=== PATIENT | female | born 1970 | race Caucasian/White ===

== ENCOUNTER 2021-02-11 01:58 | Inpatient (IN) ==
[2021-02-11] MEDS ORDERED: SODIUM CHLORIDE 0.9% 1000ML 1,000 ML IV ONE (02:16)
--- NOTE | 2021-02-11 02:21 | Emergency Department Note ---
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 Quite ill appearing, tachypneic and dehyrated on arrival. Septic work-up initiated though obtained VGB given concerns for DKA given her appearnce. Given 1 L NSS bolus with some improvement in patient and then NSS infusion (she is quite small and already 30ml/kg with just 1 L). Labs with elevated wbc as well as hyperglycemia, acidosis, and bicarb of 4. This is consistent with severe DKA. She does not have any clear findings of infectious etiology at this time and abdomen is soft, non-tender. She was started on severe stress dose insulin infusion and Hospitalist and ICU made aware. Will hold on abx given no clear findings/source infection at this time and symptoms/findings consistent with DKA. I did give her some benadryl with history of allergy to what she was mowing with minimal change in symptoms. Patient has elevated dimer. In setting of DKA and her rheumatoid arthritis I am not overly convinced this is clotting related and I do not feel that emergent CTA in patient with good O2 sats indicated given other causes of symptoms. Triage/Nursing Notes reviewed by Me Differentials:Infection, dehydration, metabolic abnormality, h ypo/hyperglycemia, electrolyte disturbance, anemia, hypoxia, cardiac sources, intracerebral event, toxicologic, neurologic, as well as other pathologies. Vital Signs: reviewed and remarkable for tachy, hypertension, tachypnea Interventions: saline lock, nss bolus/gtt, insulin gtt, benadryl 25mg IV Labs:Reviewed and remarkable for many abnormalities consistent with DKA Imaging:X ray results are stated below per my interpretation: Chest: 1 view: No infiltrate, no effusion, normal cardiac border. EKG:Per My Interpretation: Indication Weakness: Sinus tach 368 bpm, qtc 498. No Ectopy. No Ischemia. Compared to EKG 02/07/13, no significant changes. Cardiac/Tele Monitoring: Cardiac Monitoring: An Order was placed for continuous cardiac monitoring. The monitor shows a rate of 115 with a sinus tach rhythm. Consults:Dr Dl Tena Hospitalist Plan: Disposition:Hospitalization. Condition: Fair History of Present Illness:50 yr old female arrives for evaluation of weakness. Patient arrives with acute worsening of weakness over the last 3 days. Associated with feeling short of breath, intermittent chest pain, and lack of appetite. She has been too weak to eat anything. No previous symptoms like this previously. Inciting event was mowing her lawn. No bee nor insect stings but did mow sumac which has previously caused allergic reaction. Benadryl taken at home without improvement. She is DMII though has not checked BSG in some time. She denies syncope, rashes, abdominal pain, headache, fevers, back pain, urinary/bowel changes, nor other symptoms. Patient with long history rheumatoid arthritis on chronic low dose steroids. ROS: See above HPI for pertinent positives & negatives. A total of 10 systems reviewed and were otherwise negative. Past Medical History:DMII, Rheumatoid arthritis, Celiac Disease, Asthma, GERD Past Surgical History:None Family History:Non contributory Social History:Lives with , no smoking Home Medications:See Below Allergies:See Below Vitals:Blood Pressure: 163/79, Pulse 110, RR 30, T 36.4C, O2 100% on RA Physical Exam: GENERAL: Patient is severely ill and dehydrated appearing and in severe distress. Cachectic appearing EYES: No scleral icterus, unremarkable pupils. ENT: Mucous membranes dry, no nasal congestion. NECK: No masses appreciated, nomeningismus, trachea is midline. RESPIRATORY: Quite tachypneic. Clear to auscultation and equal bilaterally. No wheeze, no rhonchi. CARDIOVASCULAR: Tachy.No murmurs, rubs, gallops appreciated. GASTROINTESTINAL: Abdomen soft, non-tender, no peritonitis.Bowel sounds positive.No masses appreciated. BACK: No midline tenderness, no CVA tenderness EXTREMITIES: Normal motion all extremities, no cyanosis, no edema. Arthritis in hands noted NEUROLOGIC: Alert and oriented though tired appearing, no acute motor or sensory deficits, no focal weakness, cranial nerves grossly intact. SKIN: No rash, no jaundice, no diaphoresis. PSYCH: Appropriate GCS: 15 ED Course: Times/Reassessments: Multiple repeat evaluations to explain findings and need for hospitalization Critical Care: I have personally spent 35 minutes of critical care time in the direct man agement of this patient. Acute DKA with severe acidosis requiring fluid resus, insulin gtt and ICU admission. This was a life/limb threatening event. This 35 minutes is in excess of all separately billable procedures. Jose Fuchs MD Past Med/Surg History Social History Smoking Status: Never smoker Hx Alcohol Use: Yes Alcohol type: wine Hx Substance Use: No Preferred Language: Niuean Communication Ability: Effective Chorus Dancer Required: No Beliefs That Will Affect Care: None Current Living Situation: Spouse Other Information That Helps Us Care for You: No Feels Safe at Home: Yes Safety Concerns: Feels Safe At This Time Assistive Devices: Glasses Allergies Allergies Allergy/AdvReac Type Severity Reaction Status Date / Time latex Allergy Intermediate rash, Verified 02/11/21 02:32 breathing problem wheat Allergy Mild HIVES Unverified 02/11/21 02:32 propylthiouracil Allergy Unknown Unknown Verified 02/11/21 02:32 Sulfa (Sulfonamide Allergy UNKN Unverified 02/11/21 02:32 Antibiotics) methimazole AdvReac Unknown ITCHY Verified 02/11/21 02:32 Home Meds Home Medications Medication Instructions Recorded Confirmed albuterol sulfate 90 mcg/actuation 2 puff INHALATION Q6 PRN 02/11/21 02/11/21 aerosol inhaler cetirizine 10 mg tablet (Zyrtec) 10 mg PO DAILY 02/11/21 02/11/21 cholecalciferol (vitamin D3) 50 50 mcg PO DAILY 02/11/21 02/11/21 mcg (2,000 unit) tablet (Vitamin D3) empagliflozin 25 mg tablet 25 mg PO DAILY 02/11/21 02/11/21 (Jardiance) hydroxychloroquine 200 mg tablet 200 mg PO DAILY 02/11/21 02/11/21 metformin 850 mg tablet 850 mg PO TID 02/11/21 02/11/21 montelukast 10 mg tablet 10 mg PO DAILY 02/11/21 02/11/21 multivitamin 1 tab PO DAILY 02/11/21 02/11/21 omeprazole 20 mg capsule,delayed 20 mg PO BID 02/11/21 02/11/21 release polyethylene glycol 3350 17 gram 17 g PO DAILY 02/11/21 02/11/21 oral powder packet (Miralax) prednisone 1 mg tablet 4 mg PO DAILY 02/11/21 02/11/21 Results & Data (ED) Vital Signs Vital Signs - 24 hr 02/11/21 01:58 02/11/21 02:44 02/11/21 03:23 Temperature 36.4 C L Temperature Source Temporal Artery Scan Pulse Rate 110 H 112 H Pulse Rate from SpO2 Sensor 112 H Respiratory Rate 30 H 33 H Respiratory Effort / Characteristics Non-Labored Spontaneous Short of Breath SOB on Exertion Non-Labored Spontaneous Short of Breath Respiratory Depth Normal Normal Respiratory Pattern Tachypnea Tachypnea Blood Pressure 163/79 H Blood Pressure Mean 107 Blood Pressure Position Sitting Pulse Oximetry 100 100 Oxygen Delivery Method Room Air Room Air Sepsis Recent Fever Within 48 Hours No Sepsis New/Unexplained Change in Mental Status No Sepsis Action Taken by Nursing No Action Required 02/11/21 04:00 02/11/21 04:30 Temperature Temperature Source Pulse Rate 107 H 111 H Pulse Rate from SpO2 Sensor 107 H 111 H Respiratory Rate 25 H 25 H Respiratory Effort / Characteristics Respiratory Depth Respiratory Pattern Blood Pressure 157/95 H 159/93 H Blood Pressure Mean 115 115 Blood Pressure Position Pulse Oximetry 100 100 Oxygen Delivery Method Sepsis Recent Fever Within 48 Hours Sepsis New/Unexplained Change in Mental Status Sepsis Action Taken by Nursing Laboratory Data Result diagrams: 02/11/21 02:23 02/11/21 07:14 Lab Results 02/11/21 02/11/21 02/11/21 Range/Units 02:16 02:23 02:23 WBC (4.8-10.8) K/uL RBC (4.2-5.4) M/uL Hgb (12.0-16.0) g/dL Hct (37-47) % MCV (80-100) fL MCH (25-34) pg MCHC (32-36) g/dL RDW Std Deviation (36.4-46.3) fL RDW Coeff of Hank (11.5-14.5) % Plt Count (130-400) K/uL MPV (7.4-10.4) fL Immature Gran % (Auto) % Neut % (Auto) % Lymph % (Auto) % [place] % (Auto) % Eos % (Auto) % Baso % (Auto) % Neut # (Auto) (1.4-6.5) K/uL Lymph # (Auto) (1.2-3.4) K/uL [place] # (Auto) (0.11-0.59) K/uL Eos # (Auto) (0-0.5) K/uL Baso # (Auto) (0-0.2) K/uL Immature Gran # (Auto) (0.00-0.02) K/uL RBC Morphology PT (9.0-12.0) Seconds INR (0.9-1.1) D-Dimer (0-500) ug/L FEU VBG pH (7.36-7.41) VBG pCO2 (38-50) mmHg VBG pO2 mmHg VBG HCO3 mmol/L VBG O2 Saturation % VBG Base Excess mEq/L Sodium 135 L (136-145) mmol/L Potassium 4.5 (3.5-5.1) mmol/L Chloride 103 (98-107) mmol/L Carbon Dioxide 4 L* (21-32) mmol/L Anion Gap 28.0 H (3-11) BUN 23 H (7-18) mg/dl Creatinine 1.04 (0.6-1.2) mg/dl Est Cr Clr Drug Dosing Not Reportable Est GFR ( Amer) 71.5 ml/min Est GFR (Non-Af Amer) 61.7 ml/min BUN/Creatinine Ratio 22.2 H (10-20) Glucose 333 H* (70-99) mg/dl POC Glucose 286 H (70-99) mg/dl Lactate 1.8 (0.4-2.0) mmol/L Calcium 9.0 (8.5-10.1) mg/dl Magnesium 2.5 H (1.8-2.4) mg/dl Total Bilirubin 0.5 (0.2-1) mg/dl Direct Bilirubin < 0.1 (0-0.2) mg/dl AST 21 (15-37) U/L ALT 34 (12-78) U/L Alkaline Phosphatase 115 (45-117) U/L Troponin I < 0.015 (0-0.045) ng/ml Total Protein 8.8 H (6.4-8.2) gm/dl Albumin 4.5 (3.4-5.0) gm/dl Lipase 208 (73-393) U/L Beta-Hydroxybutyric Acd (0.2-2.81) mg/dl Procalcitonin (0-0.5) ng/ml TSH 0.069 L (0.300-4.500) uIu/ml COVID-19 Eval Order SARS-CoV-2 (PCR) (Negative) 02/11/21 02/11/21 02/11/21 Range/Units 02:23 02:23 02:23 WBC 19.89 H (4.8-10.8) K/uL RBC 4.75 (4.2-5.4) M/uL Hgb 15.1 (12.0-16.0) g/dL Hct 48.1 H (37-47) % MCV 101.3 H (80-100) fL MCH 31.8 (25-34) pg MCHC 31.4 L (32-36) g/dL RDW Std Deviation 53.5 H (36.4-46.3) fL RDW Coeff of Hank 14.4 (11.5-14.5) % Plt Count 538 H (130-400) K/uL MPV 10.4 (7.4-10.4) fL Immature Gran % (Auto) 2.4 % Neut % (Auto) 78.2 % Lymph % (Auto) 9.8 % [place] % (Auto) 9.3 % Eos % (Auto) 0.1 % Baso % (Auto) 0.2 % Neut # (Auto) 15.58 H (1.4-6.5) K/uL Lymph # (Auto) 1.95 (1.2-3.4) K/uL [place] # (Auto) 1.84 H (0.11-0.59) K/uL Eos # (Auto) 0.01 (0-0.5) K/uL Baso # (Auto) 0.04 (0-0.2) K/uL Immature Gran # (Auto) 0.47 H (0.00-0.02) K/uL RBC Morphology Unremarkable PT 9.5 (9.0-12.0) Seconds INR 0.9 (0.9-1.1) D-Dimer 1570 H* (0-500) ug/L FEU VBG pH (7.36-7.41) VBG pCO2 (38-50) mmHg VBG pO2 mmHg VBG HCO3 mmol/L VBG O2 Saturation % VBG Base Excess mEq/L Sodium (136-145) mmol/L Potassium (3.5-5.1) mmol/L Chloride (98-107) mmol/L Carbon Dioxide (21-32) mmol/L Anion Gap (3-11) BUN (7-18) mg/dl Creatinine (0.6-1.2) mg/dl Est Cr Clr Drug Dosing Est GFR ( Amer) ml/min Est GFR (Non-Af Amer) ml/min BUN/Creatinine Ratio (10-20) Glucose (70-99) mg/dl POC Glucose (70-99) mg/dl Lactate (0.4-2.0) mmol/L Calcium (8.5-10.1) mg/dl Magnesium (1.8-2.4) mg/dl Total Bilirubin (0.2-1) mg/dl Direct Bilirubin (0-0.2) mg/dl AST (15-37) U/L ALT (12-78) U/L Alkaline Phosphatase (45-117) U/L Troponin I (0-0.045) ng/ml Total Protein (6.4-8.2) gm/dl Albumin (3.4-5.0) gm/dl Lipase (73-393) U/L Beta-Hydroxybutyric Acd (0.2-2.81) mg/dl Procalcitonin 0.16 (0-0.5) ng/ml TSH (0.300-4.500) uIu/ml COVID-19 Eval Order SARS-CoV-2 (PCR) (Negative) 02/11/21 02/11/21 02/11/21 Range/Units 02:46 03:00 03:00 WBC (4.8-10.8) K/uL RBC (4.2-5.4) M/uL Hgb (12.0-16.0) g/dL Hct (37-47) % MCV (80-100) fL MCH (25-34) pg MCHC (32-36) g/dL RDW Std Deviation (36.4-46.3) fL RDW Coeff of Hank (11.5-14.5) % Plt Count (130-400) K/uL MPV (7.4-10.4) fL Immature Gran % (Auto) % Neut % (Auto) % Lymph % (Auto) % [place] % (Auto) % Eos % (Auto) % Baso % (Auto) % Neut # (Auto) (1.4-6.5) K/uL Lymph # (Auto) (1.2-3.4) K/uL [place] # (Auto) (0.11-0.59) K/uL Eos # (Auto) (0-0.5) K/uL Baso # (Auto) (0-0.2) K/uL Immature Gran # (Auto) (0.00-0.02) K/uL RBC Morphology PT (9.0-12.0) Seconds INR (0.9-1.1) D-Dimer (0-500) ug/L FEU VBG pH 6.91 L (7.36-7.41) VBG pCO2 22 L (38-50) mmHg VBG pO2 53 mmHg VBG HCO3 4 mmol/L VBG O2 Saturation 78.4 % VBG Base Excess -27.6 mEq/L Sodium (136-145) mmol/L Potassium (3.5-5.1) mmol/L Chloride (98-107) mmol/L Carbon Dioxide (21-32) mmol/L Anion Gap (3-11) BUN (7-18) mg/dl Creatinine (0.6-1.2) mg/dl Est Cr Clr Drug Dosing Est GFR ( Amer) ml/min Est GFR (Non-Af Amer) ml/min BUN/Creatinine Ratio (10-20) Glucose (70-99) mg/dl POC Glucose (70-99) mg/dl Lactate (0.4-2.0) mmol/L Calcium (8.5-10.1) mg/dl Magnesium (1.8-2.4) mg/dl Total Bilirubin (0.2-1) mg/dl Direct Bilirubin (0-0.2) mg/dl AST (15-37) U/L ALT (12-78) U/L Alkaline Phosphatase (45-117) U/L Troponin I (0-0.045) ng/ml Total Protein (6.4-8.2) gm/dl Albumin (3.4-5.0) gm/dl Lipase (73-393) U/L Beta-Hydroxybutyric Acd (0.2-2.81) mg/dl Procalcitonin (0-0.5) ng/ml TSH (0.300-4.500) uIu/ml COVID-19 Eval Order Covid19 at [facility] SARS-CoV-2 (PCR) NEGATIVE (Negative) 02/11/21 Range/Units 03:38 WBC (4.8-10.8) K/uL RBC (4.2-5.4) M/uL Hgb (12.0-16.0) g/dL Hct (37-47) % MCV (80-100) fL MCH (25-34) pg MCHC (32-36) g/dL RDW Std Deviation (36.4-46.3) fL RDW Coeff of Hank (11.5-14.5) % Plt Count (130-400) K/uL MPV (7.4-10.4) fL Immature Gran % (Auto) % Neut % (Auto) % Lymph % (Auto) % [place] % (Auto) % Eos % (Auto) % Baso % (Auto) % Neut # (Auto) (1.4-6.5) K/uL Lymph # (Auto) (1.2-3.4) K/uL [place] # (Auto) (0.11-0.59) K/uL Eos # (Auto) (0-0.5) K/uL Baso # (Auto) (0-0.2) K/uL Immature Gran # (Auto) (0.00-0.02) K/uL RBC Morphology PT (9.0-12.0) Seconds INR (0.9-1.1) D-Dimer (0-500) ug/L FEU VBG pH (7.36-7.41) VBG pCO2 (38-50) mmHg VBG pO2 mmHg VBG HCO3 mmol/L VBG O2 Saturation % VBG Base Excess mEq/L Sodium (136-145) mmol/L Potassium (3.5-5.1) mmol/L Chloride (98-107) mmol/L Carbon Dioxide (21-32) mmol/L Anion Gap (3-11) BUN (7-18) mg/dl Creatinine (0.6-1.2) mg/dl Est Cr Clr Drug Dosing Est GFR ( Amer) ml/min Est GFR (Non-Af Amer) ml/min BUN/Creatinine Ratio (10-20) Glucose (70-99) mg/dl POC Glucose 280 H (70-99) mg/dl Lactate (0.4-2.0) mmol/L Calcium (8.5-10.1) mg/dl Magnesium (1.8-2.4) mg/dl Total Bilirubin (0.2-1) mg/dl Direct Bilirubin (0-0.2) mg/dl AST (15-37) U/L ALT (12-78) U/L Alkaline Phosphatase (45-117) U/L Troponin I (0-0.045) ng/ml Total Protein (6.4-8.2) gm/dl Albumin (3.4-5.0) gm/dl Lipase (73-393) U/L Beta-Hydroxybutyric Acd (0.2-2.81) mg/dl Procalcitonin (0-0.5) ng/ml TSH (0.300-4.500) uIu/ml COVID-19 Eval Order SARS-CoV-2 (PCR) (Negative) Administered Medications Insulin Human Regular 250 (units/ Sodium Chloride) 250 mls @ 4.1 mls/hr IV .Q24H ARAMIS; Protocol Stop: 03/13/21 03:29 Last Titration: 02/11/21 07:00 Dose: 4.1 units/hr, 4.1 mls/hr Documented by: [id number] Cosigned by: [id number] Titration: 02/11/21 06:33 Dose: 3.4 units/hr, 3.4 mls/hr Documented by: [id number] Cosigned by: [id number] Titration: 02/11/21 04:55 Dose: 3.4 units/hr, 3.4 mls/hr Documented by: [id number] Cosigned by: [id number] Admin: 02/11/21 03:55 Dose: 3.4 units/hr, 3.4 mls/hr Documented by: [id number] Cosigned by: [id number] Potassium Chloride/Dextrose/Sod Cl (D5w And 1/2nss + 20meq Kcl) 20 meq in 1,000 mls @ 200 mls/hr IV .Q5H ARAMIS Stop: 03/13/21 06:14 Last Admin: 02/11/21 06:29 Dose: 200 mls/hr Documented by: [id number] Discontinued Medications Diphenhydramine HCl (Diphenhydramine 50 Mg/Ml Vial) 25 mg IV NOW STA Stop: 02/11/21 02:41 Last Admin: 02/11/21 02:57 Dose: 25 mg Documented by: [id number] Sodium Chloride (Nss 1000ml) 1,000 mls @ 999 mls/hr IV .Q1H1M ONE Stop: 02/11/21 03:16 Last Infusion: 02/11/21 03:34 Dose: 0 mls/hr Documented by: [id number] Admin: 02/11/21 02:27 Dose: 999 mls/hr Documented by: [id number] Sodium Chloride (Nss 1000ml) 1,000 mls @ 250 mls/hr IV .Q4H ARAMIS Stop: 03/13/21 03:29 Last Infusion: 02/11/21 06:33 Dose: 0 mls/hr Documented by: [id number] Admin: 02/11/21 03:40 Dose: 250 mls/hr Documented by: [id number] Insulin Human Regular (Novolin-R Bolus From Bag) 3.4 units IV ONE ONE Stop: 02/11/21 03:46 Last Admin: 02/11/21 03:56 Dose: 3.4 units Documented by: [id number] Cosigned by: [id number] Miscellaneous (Insulin Protocol Goal Range ) 1 ea N/A ONE ONE Stop: 02/11/21 03:18 Last Admin: 02/11/21 04:23 Dose: Not Given Documented by: [id number] Miscellaneous (Stat Iv Infusion Titration Per Protocol) 1 ea N/A NOW STA Stop: 02/11/21 04:33 Last Admin: 02/11/21 06:29 Dose: 1 ea Documented by: [id number] Miscellaneous Information (Pharmacy Glycemic Mgmt Consult) 1 ea N/A NOW STA Stop: 02/11/21 04:33 Last Admin: 02/11/21 06:29 Dose: 1 ea Documented by: [id number] Imaging Data Radiologist's Impression: Chest X-Ray 02/11/21 02:17 XR chest 1V portable CLINICAL HISTORY: Shortness of breath COMPARISON STUDY: 02/05/2013 FINDINGS: The cardiac and mediastinal contours are normal. There is no evidence of focal pulmonary consolidation. There is no evidence of failure. No pleural effusions are visualized.[ IMPRESSION: No active disease in the chest. ACT 112: Negative or not required by law. Electronically signed by: Ancelmo Lockhart M.D. 02/11/2021 7:19 AM Discharge Plan Visit Data Chief Complaint: Respiratory Problems Stated Complaint: DIFFICULTY BREATHING Discharge Problem: DKA (diabetic ketoacidosis) Patient Disposition: Admitted As Inpatient Discharge Instructions Interventions: ED Discharge Assessment Last Done: 02/11/21 05:30
[2021-02-11 02:33] LABS: Hematocrit (blood only) 48.1 % (37-47); Hemoglobin 15.1 g/dL (12.0-16.0); Mean Corpuscular Hemoglobin 31.8 pg (25-34); Mean Corpuscular Hgb Conc 31.4 g/dL (32-36); Mean Corpuscular Volume 101.3 fL (80-100); Mean Platelet Volume 10.4 fL (7.4-10.4); Platelet Count 538 K/uL (130-400); RDW Coefficient of Variation 14.4 % (11.5-14.5); RDW Standard Deviation 53.5 fL (36.4-46.3); Red Blood Count 4.75 M/uL (4.2-5.4); White Blood Count 19.89 K/uL (4.8-10.8)
[2021-02-11] MEDS ORDERED: diphenhydrAMINE 50 MG/ML VIAL IV STA (02:40)
[2021-02-11 02:55] LABS: INR 0.9 (0.9-1.1); Prothrombin Time 9.5 Seconds (9.0-12.0)
[2021-02-11 03:00] LABS: Base Excess VBG -27.6 mEq/L; HCO3 VBG 4 mmol/L; Oxygen Saturation VBG 78.4 %; PCO2 VBG 22 mmHg (38-50); PO2 VBG 53 mmHg; pH VBG 6.91 (7.36-7.41)
[2021-02-11 03:03] LABS: D Dimer 1570 ug/L FEU (0-500)
[2021-02-11 03:06] LABS: Basophils # (auto) 0.04 K/uL (0-0.2); Basophils % (auto) 0.2 %; Eosinophils # (auto) 0.01 K/uL (0-0.5); Eosinophils % (auto) 0.1 %; Immature Granulocytes # (auto) 0.47 K/uL (0.00-0.02); Immature Granulocytes % (auto) 2.4 %; Lymphocytes # (auto) 1.95 K/uL (1.2-3.4); Lymphocytes % (auto) 9.8 %; Monocytes # (auto) 1.84 K/uL (0.11-0.59); Monocytes % (auto) 9.3 %; Neutrophils # (auto) 15.58 K/uL (1.4-6.5); Neutrophils % (auto) 78.2 %; RBC Morphology Unremarkable
[2021-02-11 03:11] LABS: Alanine Aminotransferase 34 U/L (12-78); Albumin Level 4.5 gm/dl (3.4-5.0); Alkaline Phosphatase 115 U/L (45-117); Aspartate Aminotransferase 21 U/L (15-37); BUN Creatinine Ratio 22.2 (10-20); Bilirubin Direct < 0.1 mg/dl (0-0.2); Bilirubin,Total 0.5 mg/dl (0.2-1); Blood Urea Nitrogen 23 mg/dl (7-18); Carbon Dioxide 4 mmol/L (21-32); Chloride 103 mmol/L (98-107); Est GFR (African American) 71.5 ml/min; Est GFR (Non-African American) 61.7 ml/min; Glucose 333 mg/dl (70-99); Lipase 208 U/L (73-393); Magnesium 2.5 mg/dl (1.8-2.4); Potassium 4.5 mmol/L (3.5-5.1); Sodium 135 mmol/L (136-145); Thyroid Stimulating Hormone 0.069 uIu/ml (0.300-4.500); Total Protein 8.8 gm/dl (6.4-8.2); Troponin I < 0.015 ng/ml (0-0.045)
[2021-02-11] MEDS ORDERED: SEVERE STRESS LEVEL ONE (03:17)
[2021-02-11] MEDS ORDERED: INSULIN PROTOCOL GOAL RANGE ONE (03:17)
[2021-02-11] MEDS ORDERED: INSULIN REGULAR 250 UNITS in SODIUM CHLORIDE 0.9% 247.5 ML IV SCH ×2 (03:30→05:51)
[2021-02-11] MEDS ORDERED: SODIUM CHLORIDE 0.9% 1000ML 1,000 ML IV SCH (03:30)
[2021-02-11] MEDS ORDERED: STAT IV Infusion **Titration per Protocol STA ×2 (03:30→04:32)
[2021-02-11] MEDS ORDERED: GLUCOSE 40% GEL 15 GM TUBE PO PRN ×2 (03:45→06:30)
[2021-02-11] MEDS ORDERED: GLUCAGON FOR INJ 1 MG VIAL IM PRN ×2 (03:45→06:30)
[2021-02-11] MEDS ORDERED: DEXTROSE 50% 50 ML SYRINGE IV PRN ×2 (03:45→06:30)
[2021-02-11] MEDS ORDERED: GLUCOSE 10 TABS/TUBE PO PRN ×2 (03:45→06:30)
[2021-02-11] MEDS ORDERED: CARBOHYDRATES FOR HYPOGLYCEMIA PO PRN ×2 (03:45→06:30)
[2021-02-11] MEDS ORDERED: NovoLIN-R BOLUS FROM BAG IV ONE (03:45)
[2021-02-11] MEDS: INSULIN REGULAR 250 UNITS in SODIUM CHLORIDE 0.9% 247.5 ML IV SCH (03:55)
[2021-02-11] MEDS ORDERED: PHARMACY GLYCEMIC MGMT CONSULT STA (04:32)
[2021-02-11 05:28] LABS: Appearance Urine Clear (Clear); Bacteria Urine Automated Negative (Negative); Bilirubin Urine Negative (Negative); Blood Urine Trace (Negative); Color Urine Yellow; Epithelial Cell Urine Auto >30 /lpf (0-5); Glucose Urine UA 3+ (Negative); Ketones Urine 4+ (Negative); Leukocyte Esterase Urine Negative (Negative); Nitrite Urine Negative (Negative); Protein Urine 1+ (Negative); RBC Urine Automated 0-4 /hpf (0-4); Specific Gravity Urine 1.021 (1.000-1.030); Urobilinogen Urine Negative (Negative)
[2021-02-11] MEDS ORDERED: DKA GOAL RANGE 150-250 mg/dl ONE (05:51)
[2021-02-11] MEDS ORDERED: ALBUTEROL HFA 8 GM INHALER INH PRN (05:51)
[2021-02-11] MEDS ORDERED: DC ALL PREVIOUSLY ORDERED DIABETES MEDS ONE (05:51)
[2021-02-11] MEDS ORDERED: ICU PROTOCOL FOR HYPERGLYCEMIA PRN (05:51)
[2021-02-11] MEDS ORDERED: SODIUM CHLOR 0.45% + 20MEQ KCL 20 MEQ/1,000 ML BAG IV SCH (06:00)
[2021-02-11] MEDS ORDERED: PHARMACY GLYCEMIC MGMT CONSULT PRN (06:04)
[2021-02-11] MEDS ORDERED: PENDING 1/2NSS+20mEq KCL IVF ONE (06:06)
[2021-02-11] MEDS: D5W AND 1/2NSS + 20MEQ KCL 20 MEQ/1,000 ML BAG IV SCH ×4 (06:29→23:44)
--- NOTE | 2021-02-11 06:45 | Critical Care Consultation ---
Date of Consultation February 11, 2021 Assessment & Plan (1) DKA (diabetic ketoacidosis): Reason Critically Ill: 50-year-old female presents to the ICU with severe metabolic acidosis and DKA Neuro - [facility] ICU: Negative Cardiac - No cardiac history. Patient does report intermittent chest pain over the past 2 days but is currently asymptomatic -Troponin negative EKG without ST elevation -Continuous monitor on telemetry Respiratory - Asthmano issue at this time. Currently maintaining oxygen saturation on room air. Lungs clear to auscultation. Tachypnea likely compensatory to metabolic acidosis -Continue Zyrtec, albuterol as needed -Continuous monitoring on pulse ox GI - N.p.o. RENAL/LYTES - Creatinine within normal limits, monitor routine BMPs and replete electrolytes as indicated - Strict I's and O's ENDO - DKAinitial PSG 333, bicarb 4, anion gap 28, pH 6.9, urinalysis positive for ketones -we will follow-up A1c -Hold metformin and Jardiance. -Continue with fluid resuscitation and DKA protocol with insulin drip -Every 4 hours BMPs, VBG -Consult clinical trial educator Rheumatoid arthritiscontinue prednisone, hydroxychloroquine HEME - H&H stable, monitor routine CBCs ID - Medication for infectious process at this time LINES/IV ACCESS - Peripheral IVs DVT PROPHYLAXIS - SCDs, heparin I have personally spent 35 minutes of critical care time in the direct management of this patient. This is a life/limb threatening event. This includes time spent evaluating patient, direct bedside care, chart review, placing orders, interpretation of diagnostic studies, discussion with consultants, patient, and family members, as well as other required patient management activities. This time is exclusive of all separately billable procedures, and teaching time and separate from and in addition to any other critical care service time. Thank you for allowing us to participate in the care of this patient. Please refer to my attending physician's documentation for any further recommendations. (2) Diabetes: (3) Asthma: (4) Low body mass index (BMI): (5) Rheumatoid arthritis: (6) Metabolic acidosis: History of Present Illness Attending Physician: Kun Ruelas MD History of Present Illness Patient is a 50-year-old female with past medical history including DM, asthma, rheumatoid arthritis who presents to the emergency department this a.m. with complaints of shortness of breath, generalized weakness, and intermittent chest pain for the past 2 to 3 days. She was found to be hyperglycemic with BSG of 333, bicarb 4, and anion gap 28 on BMP. She denies previous history of DKA. Patient states she was diagnosed with diabetes at the age of 23 and has refused insulin and is currently on Metformin and Jardiance. She states that she has been taking her medications as prescribed. Patient denies any recent illness, wounds, or other sources of infection. She states that she thinks she was exposed to poison sumac as she was burning it in her yard and may have been held at. She does not have an active rash. She was given NSS bolus in the ED and started on a insulin drip. Patient now transferred to the ICU for further management of DKA. Currently patient denies headache, dizziness, sore throat, cough, chest pain, palpitations, abdominal pain, nausea or vomiting, swelling in hands or feet. Patient does report persistent shortness of breath and she is mildly tachypneic with respiratory rate in the mid 20s. Allergies Allergy/AdvReac Type Severity Reaction Status Date / Time latex Allergy Intermediate rash, Verified 02/11/21 02:32 breathing problem wheat Allergy Mild HIVES Unverified 02/11/21 02:32 propylthiouracil Allergy Unknown Unknown Verified 02/11/21 02:32 Sulfa (Sulfonamide Allergy UNKN Unverified 02/11/21 02:32 Antibiotics) methimazole AdvReac Unknown ITCHY Verified 02/11/21 02:32 Home Medications Medication Instructions Recorded Confirmed Type albuterol sulfate 90 mcg/actuation 2 puff INHALATION Q6 PRN 02/11/21 02/11/21 History aerosol inhaler cetirizine 10 mg tablet (Zyrtec) 10 mg PO DAILY 02/11/21 02/11/21 History cholecalciferol (vitamin D3) 50 50 mcg PO DAILY 02/11/21 02/11/21 History mcg (2,000 unit) tablet (Vitamin D3) empagliflozin 25 mg tablet 25 mg PO DAILY 02/11/21 02/11/21 History (Jardiance) hydroxychloroquine 200 mg tablet 200 mg PO DAILY 02/11/21 02/11/21 History metformin 850 mg tablet 850 mg PO TID 02/11/21 02/11/21 History montelukast 10 mg tablet 10 mg PO DAILY 02/11/21 02/11/21 History multivitamin 1 tab PO DAILY 02/11/21 02/11/21 History omeprazole 20 mg capsule,delayed 20 mg PO BID 02/11/21 02/11/21 History release polyethylene glycol 3350 17 gram 17 g PO DAILY 02/11/21 02/11/21 History oral powder packet (Miralax) prednisone 1 mg tablet 4 mg PO DAILY 02/11/21 02/11/21 History Patient History Social History Smoking Status: Never smoker Hx Alcohol Use: Yes Alcohol type: wine Hx Substance Use: No Preferred Language: Pashto Communication Ability: 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 Beliefs That Will Affect Care: None Current Living Situation: Spouse Other Information That Helps Us Care for You: No Feels Safe at Home: Yes Safety Concerns: Feels Safe At This Time Assistive Devices: Glasses Review of Systems Review of Systems: All systems reviewed & are unremarkable except as noted in HPI & below Physical Exam Constitutional: + thin and + malnourished ENMT: external ear and nose normal, oropharynx normal Neck: trachea midline, no thyromegaly Respiratory: normal respiratory effort, + tachypneic and symmetric chest movement Auscultation: lungs clear to auscultation bilaterally Cardiovascular: RRR, no murmur, no edema Vessels: no JVD Extremities: normal capillary refill Gastrointestinal (Abdomen): normal bowel sounds, soft, nontender, no hepatosplenomegaly Musculoskeletal: no cyanosis or clubbing, extremities motor strength 5/5 Skin: no rashes, warm and dry Neurologic: PERRL, EOMI, accommodation nl, no face palsy, no dysarthria Psychiatric: A+Ox3, euthymic affect Results & Data Results & Data ([facility]) Vital Signs (Past 12 Hours) Vital Signs Temp Pulse Pulse Resp BP BP Pulse Ox 02/11/21 06:10 02/11/21 06:07 112 H 26 H 146/78 H 100 02/11/21 05:00 113 H 29 H 139/85 100 02/11/21 04:30 111 H 25 H 159/93 H 100 02/11/21 04:00 107 H 25 H 157/95 H 100 02/11/21 03:23 112 H 33 H 100 02/11/21 01:58 36.4 C L 110 H 30 H 163/79 H 100 Pulse Ox 02/11/21 06:10 100 02/11/21 06:07 02/11/21 05:00 02/11/21 04:30 02/11/21 04:00 02/11/21 03:23 02/11/21 01:58 Coding Level of Care Code 78689 Inpt Consult Level 1 Diagnoses DKA (diabetic ketoacidosis) E11.10 Diabetes E11.9 Asthma J45.909 Low body mass index (BMI) Rheumatoid arthritis M06.9 Metabolic acidosis E87.2
[2021-02-11] MEDS ORDERED: PENDING D5 1/2NS+20mEq KCL IVF SCH (07:00)
--- NOTE | 2021-02-11 07:21 | XRay Report ---
XR chest 1V portable CLINICAL HISTORY: Shortness of breath COMPARISON STUDY: 02/05/2013 FINDINGS: The cardiac and mediastinal contours are normal. There is no evidence of focal pulmonary co nsolidation. There is no evidence of failure. No pleural effusions are visualized.[ IMPRESSION: No active disease in the chest. ACT 112: Negative or not required by law. Electronically signed by: Ancelmo Lockhart M.D. 02/11/2021 7:19 AM
[2021-02-11] MEDS ORDERED: INSULIN ASPART 100 UNITS/ML 3 ML PEN SC SCH (07:30)
[2021-02-11 08:03] LABS: Estimated Average Glucose 375 mg/dl; Hemoglobin A1C 14.7 % (4.5-5.6)
[2021-02-11 08:04] LABS: BUN Creatinine Ratio 25.7 (10-20); Creatinine Clr Calc Pharmacy 38.2 ml/min; Est GFR (African American) 92.6 ml/min; Est GFR (Non-African American) 79.9 ml/min; Magnesium 1.9 mg/dl (1.8-2.4); Phosphorus 3.8 mg/dl (2.5-4.9); Potassium 4.1 mmol/L (3.5-5.1)
[2021-02-11 08:11] LABS: Thyroid Stimulating Hormone 0.029 uIu/ml (0.300-4.500)
[2021-02-11 08:27] LABS: T4 Free Thyroxine 0.73 ng/dl (0.8-1.6)
--- NOTE | 2021-02-11 08:30 | History and Physical Report ---
DATE OF ADMISSION: 02/11/2021. CHIEF COMPLAINT: Shortness of breath, DKA. HISTORY OF PRESENT ILLNESS: This 50-year-old female with past medical history significant for hyperlipidemia, type 2 diabetes, asthma mild, persistent, allergic rhinitis, constipation, GERD, celiac disease, nausea, protein calorie malnutrition, uterine leiomyoma, steroid-induced osteoporosis, rheumatoid arthritis, benign neoplasm of breast, dizziness. The patient lives with her , was brought in because of complaint of shortness of breath. The patient has been somewhat lethargic and somewhat restless, complains of shortness of breath and asking for something to drink and she states her shortness of breath started because of cutting trees couple of days ago and she is allergic to those trees. As per , she is getting more short of breath since last 2 days, but today evening was worse and she also getting weak and tired . Though baseline generally, she is somewhat weak, but today it got worse. As per she doesn"t check sugars regularly and when checked sugars were running as per in 200s as it is running today. As per the [facility], HbA1c in November was more than 10 but as per , does not want to be on insulin. She is currently taking metformin, Jardiance. No cough, no fever. No nausea, no vomiting, no complaints of abdominal pain, no headache. Somewhat constipated. Micturating okay. No fevers. The patient did not receive any COVID vaccine. In the ER she is somewhat tachypneic, tachycardic. White count is 19, D-dimer is 1570. Venous blood gas pH of 6.9 and CO2 is only 4. Blood sugar is 333. TSH was 0.069. SARS-CoV-2 PCR negative. Chest x-ray is okay. ALLERGIES: LATEX, WHEAT, PROPYLTHIOURACIL, SULFA ANTIBIOTICS, METHIMAZOLE. PAST MEDICAL HISTORY: As mentioned above. PAST SURGICAL HISTORY: Breast biopsy, colonoscopy, EGDs, exploration of abdomen, cryo of cervix for abnormal Pap, wisdom tooth removed, mid omental tumor benign, small bowel endoscopy with biopsy. MEDICATIONS: The patient is on albuterol 2 puffs inhalation q. 6 hours p.r.n., cetirizine 10 mg p.o. daily, vitamin D 50 mcg p.o. daily, Jardiance 25 mg p.o. daily, hydroxychloroquine 200 mg p.o. daily, metformin 850 mg p.o. t.i.d., montelukast 10 mg p.o. daily, multivitamin one tablet p.o. daily, omeprazole 20 mg p.o. b.i.d., MiraLax 17 g p.o. daily, prednisone 4 mg p.o. daily. FAMILY HISTORY: Significant for maternal cousin has breast cancer, father had lung cancer, mother had cervical cancer, brother has diabetes. SOCIAL HISTORY: , no smoking, no alcohol, no drug use. REVIEW OF SYSTEMS: patient is somewhat lethargic today. Most of the history got from the . PHYSICAL EXAMINATION: GENERAL: The patient is thin and frail, somewhat confused. VITAL SIGNS: Temperature 36.4, pulse 111, respiratory rate 25, blood pressure 115/93, oxygen 98% on room air. HEENT: Pupils equal, round and reactive to light. Oral mucosa dry. NECK: No JVD, no neck masses. HEART: S1 and S2 heard. Tachycardia. No murmurs. RESPIRATORY SYSTEM: Normal AP diameter. Mild tachypnea. No wheezing, no crackles. ABDOMEN: Soft, bowel sounds present, nontender, no distention. CENTRAL NERVOUS SYSTEM: Alert and somewhat drowsy. Oriented to name and place, can tell the date of . Obeys simple commands. Speaking in low volumes. Moves extremities. EXTREMITIES: No edema, no erythema. LABORATORY DATA: WBC 19.8, hemoglobin 15.1, hematocrit 48.1, platelets 538. PT 9.5. INR 0.9. D-dimer 1570. Venous pH of 6.9, pCO2 of 22, pO2 of 53, bicarbonate 4. Sodium 135, potassium 4.5, chloride 103, bicarbonate 4, anion gap 28, BUN 23, creatinine 1.04, serum glucose 333. Lactate 1.8, calcium 9, magnesium 2.5, total bilirubin 0.5, direct bilirubin less than 0.1, AST 21, ALT 34, alkaline phosphatase 115. Troponin I less than 0.015. Procalcitonin 0.16. TSH 0.069. SARS-CoV-2 PCR negative. IMAGING DATA: Chest x-ray, no acute findings. EKG: Sinus tachycardia with a rate of 110. Bilateral enlargement, no significant change was seen. ASSESSMENT AND PLAN: This 50-year-old female presents with diabetic ketoacidosis. 1. Diabetic ketoacidosis. Patient refusing to be on insulin as per . We will hold metformin and Jardiance. The patient's CO2 is only 4. Venous blood gas, pH of 6.91. Er started her on insulin drip protocol, which we will continue. Labs every 4 hours as per DKA protocol, aggressive fluids as per DKA protocol. Because of her acidosis and symptoms of shortness of breath and being fragile and confusion, we will admit to ICU. Closely monitor response to the insulin drip and fluids. 2. History of rheumatoid arthritis. Continue hydroxychloroquine and prednisone 4 mg daily. If needed, the patient may need to be placed on stress dose steroids. 3. History of mild persistent asthma: Continue home inhalers. Elevated D- dimer is most likely secondary to rheumatoid arthritis. Shortness of breath will be mostly secondary to metabolic acidosis. If any concern, may need to rule out PE. 4. GERD. Continue omeprazole. 5. Protein calorie malnutrition. Dietitian consult. 6. Deep venous thrombosis prophylaxis, heparin subcu. 7. Abnormal TSH. We will follow the repeat labs. DISPOSITION: Closely monitor in the ICU. Level 1 full code as per discussion with her . Job ID: [id number] [facility]
[2021-02-11] MEDS: HYDROXYCHLOROQUINE SULFATE 200 MG TAB PO SCH (09:21)
[2021-02-11] MEDS: LACTATED RINGER'S 1,000 ML IV SCH ×2 (09:26→14:51)
[2021-02-11] MEDS: CHOLECALCIFEROL 1,000 UNITS 25 MCG TAB PO SCH (09:29)
[2021-02-11] MEDS: predniSONE 1 MG TAB PO SCH (09:30)
[2021-02-11] MEDS: MONTELUKAST SODIUM 10 MG TABLET PO SCH (09:30)
[2021-02-11] MEDS: MULTIVITAMIN TAB PO SCH (09:30)
[2021-02-11] MEDS: PANTOprazole 40 MG TAB PO SCH ×2 (09:30→22:15)
[2021-02-11] MEDS: CETIRIZINE HCL 10 MG TABLET PO SCH (09:31)
[2021-02-11] MEDS: HEPARIN SOD 5,000 UNIT/0.5 ML VIAL SQ SCH ×2 (09:31→20:20)
[2021-02-11] MEDS: INSULIN ASPART 100 UNITS/ML 3 ML PEN SC SCH ×4 (10:00→20:22)
[2021-02-11] MEDS: ACETAMINOPHEN 500 MG TAB PO PRN ×3 (10:01→22:15)
[2021-02-11 10:31] LABS: BUN Creatinine Ratio 21.4 (10-20); Calcium 8.5 mg/dl (8.5-10.1); Creatinine Clr Calc Pharmacy 35.3 ml/min; Est GFR (African American) 84.1 ml/min; Est GFR (Non-African American) 72.5 ml/min; Magnesium 1.7 mg/dl (1.8-2.4); Phosphorus 1.9 mg/dl (2.5-4.9); Potassium 4.1 mmol/L (3.5-5.1)
--- NOTE | 2021-02-11 12:14 | Pharmacy Report ---
Pharmacy Glycemic Short Note 2 - Date of Service February 11, 2021 - Glycemic Short BSG Results (Last 24 hours): 02/11/21 02/11/21 02/11/21 02:16 02:23 03:38 Glucose 333 H* POC Glucose 286 H 280 H 02/11/21 02/11/21 02/11/21 04:54 05:55 07:13 Glucose POC Glucose 251 H 248 H 277 H 02/11/21 02/11/21 02/11/21 07:14 08:10 09:11 Glucose 269 H POC Glucose 232 H 230 H 02/11/21 02/11/21 02/11/21 09:36 09:57 11:06 Glucose 203 H POC Glucose 203 H 167 H OUTPATIENT ANTIDIABETIC REGIMEN: * Jardiance 25 mg daily, metformin 850mg TID * Patient chronically on low dose prednisone * A1c: 14.7% 02-11-21 ASSESSMENT: * Patient presenting in DKA/HHS started on an insulin infusion. Patient continues with fluid resuscitation today wtih LR @ 200 mL/hr and D5W/1/2NSS +20meq KCL @ 175 mL/hr. * Q4 labs ordered, with most recent showing CO2 of 5 and an AG of 20. As discussed with ICU team will continue with IV insulin infusion at this time. Will consider addition of lantus this evening or tomorrow morning. Patient is NPO, home prednisone continues PLAN FOR INPATIENT GLYCEMIC CONTROL: * Hold outpatient oral diabetes medications * IV insulin infusion initiated last evening * Goal Range 110 - 180 mg/dl (provider aware) * In the critical care setting, continuous IV insulin infusion has been shown to be the best method for achieving glycemic targets. * Basal insulin * Lantus: none at this time * Bolus insulin * NovoLog per scale ACHS or Q6hrs while NPO- Per insulin infusion calculator while on drip PLAN FOR DISCHARGE: * TBD, per ICU rounds, patient previously unwilling to initiate insulin as an outpatient
--- NOTE | 2021-02-11 13:26 | Electrocardiogram Report ---
Test Reason : Blood Pressure : / mmHG Vent. Rate : 110 BPM Atrial Rate : 110 BPM P-R Int : 116 ms QRS Dur : 086 ms QT Int : 368 ms P-R-T Axes : 076 062 040 degrees QTc Int : 498 ms Poor data quality, interpretation may be adversely affected Sinus tachycardia Biatrial enlargement Nonspecific ST abnormality Abnormal ECG When compared with ECG of 07-FEB-2013 08:34, No significant change was found Confirmed by Dm Vizcaino ([id number]) on 02/11/2021 1:25:57 PM Referred By: REFERRED SELF Confirmed By:Dm Vizcaino
[2021-02-11] MEDS ORDERED: methIMAzole 5 MG TABLET PO SCH (14:00)
[2021-02-11 14:39] LABS: BUN Creatinine Ratio 15.9 (10-20); Creatinine Clr Calc Pharmacy 37.3 ml/min; Est GFR (Non-African American) 77.7 ml/min; Magnesium 1.5 mg/dl (1.8-2.4); Phosphorus 1.6 mg/dl (2.5-4.9); Potassium 3.8 mmol/L (3.5-5.1)
--- NOTE | 2021-02-11 15:07 | Hospitalist Progress Note ---
Date of Service February 11, 2021 Assessment & Plan (1) Metabolic acidosis: Plan: Patient is a 50 yr old female presents with diabetic ketoacidosis. Diabetic ketoacidosis. 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 Hydroxychloroquine held for now Continue Prednisone 4 mg daily Mild persistent asthma: No signs of Exacerbation Continue home inhalers Elevated D-dimer Likely due to RA Consider further eval if needed GERD Continue PPI Severe Protein calorie malnutrition BMI:13.3 Dietitian consulted Abnormal Thyroid function test ? Euthyroid Sick Syndrome Will repeat Thyroid function in 2 days DVT Px Heparin SQ Admission and Anticipated Discharge Date Admission Date: February 11, 2021 Subjective Patient is seen and examined at bedside States Dizziness and Dyspnea much improved Reports intermittent cough with deep inspiration Tachycardic on monitor Denies chest pain, abd pain Review of Systems Review of Systems: All systems reviewed & are unremarkable except as noted in Subjective Physical Exam Physical Exam: Physical Exam: Vitals signs as noted above General Appearance:Very thin, Frail, Chronic ill appearing, no apparent distress Head: normocephalic, Atraumatic Eyes: normal inspection, EOMI Neck: supple, Trachea midline Respiratory/Chest: Normal breath sounds, CTA, No accessory muscle use Cardiovascular: S1, S2, No murmur, +Tachycardic Abdomen/GI:Soft, Non tender, Bowel sounds present Extremities/Musculoskeletal:normal inspection, no edema, +Rheumatoid Arthritis changes Neurologic/Psych:AAOX3, grossly no focal neurological deficits Skin: normal color, warm Results & Data Results & Data ([facility]) Vital Signs (Past 12 Hours) Vital Signs Temp Pulse Pulse Pulse Resp BP BP 02/11/21 11:20 36.8 C 113 H 26 H 126/79 02/11/21 10:00 36.4 C L 120 H 29 H 02/11/21 09:30 35.7 C L 02/11/21 09:22 35.1 C L 02/11/21 08:20 34.7 C L 117 H 23 142/89 H 02/11/21 08:00 111 H 02/11/21 07:20 109 H 17 132/76 02/11/21 06:10 02/11/21 06:07 112 H 26 H 146/78 H 02/11/21 06:05 114 H 29 H 147/93 H 02/11/21 05:57 32.2 C L 115 H 26 H 162/94 H 02/11/21 05:45 115 H 02/11/21 05:00 113 H 29 H 139/85 02/11/21 04:30 111 H 25 H 159/93 H 02/11/21 04:00 107 H 25 H 157/95 H 02/11/21 03:23 112 H 33 H Pulse Ox Pulse Ox 02/11/21 11:20 99 02/11/21 10:00 100 02/11/21 09:30 02/11/21 09:22 02/11/21 08:20 100 02/11/21 08:00 02/11/21 07:20 100 02/11/21 06:10 100 02/11/21 06:07 100 02/11/21 06:05 100 02/11/21 05:57 100 02/11/21 05:45 02/11/21 05:00 100 02/11/21 04:30 100 02/11/21 04:00 100 02/11/21 03:23 100 Laboratory Results Short CBC 02/11/21 Range/Units 02:23 WBC 19.89 H (4.8-10.8) K/uL Hgb 15.1 (12.0-16.0) g/dL Hct 48.1 H (37-47) % Plt Count 538 H (130-400) K/uL BMP 02/11/21 02/11/21 02/11/21 02:23 07:14 09:36 Sodium 135 L 140 137 Potassium 4.5 4.1 4.1 Chloride 103 113 H 112 H Carbon Dioxide 4 L* 4 L* 5 L* BUN 23 H 22 H 19 H Creatinine 1.04 0.84 0.91 Glucose 333 H* 269 H 203 H Calcium 9.0 8.0 L 8.5 02/11/21 14:07 Sodium 139 Potassium 3.8 Chloride 113 H Carbon Dioxide 15 L BUN 14 Creatinine 0.86 Glucose 155 H Calcium 8.0 L Cardiac Enzymes 02/11/21 Range/Units 02:23 Troponin I < 0.015 (0-0.045) ng/ml Liver Function 02/11/21 Range/Units 02:23 Total Bilirubin 0.5 (0.2-1) mg/dl Direct Bilirubin < 0.1 (0-0.2) mg/dl AST 21 (15-37) U/L ALT 34 (12-78) U/L Alkaline Phosphatase 115 (45-117) U/L Albumin 4.5 (3.4-5.0) gm/dl Urine 02/11/21 Range/Units 05:10 Urine Color Yellow Urine Appearance Clear (Clear) Urine pH 5.0 (4.5-7.5) Ur Specific [place] 1.021 (1.000-1.030) Urine Protein 1+ H (Negative) Urine Glucose (UA) 3+ H (Negative)
[2021-02-11] MEDS ORDERED: POTASSIUM PHOS 3 MMOL/1 ML INFUSION IV ONE (16:49)
[2021-02-11] MEDS: MAGNESIUM SULFATE / D5W 1 GM/100 ML BAG IV SCH ×2 (17:28→19:59)
[2021-02-11] MEDS ORDERED: POTASSIUM PHOSPHATE 15 MMOL in SODIUM CHLORIDE 0.9% 250 ML IV ONE (17:30)
[2021-02-11] MEDS ORDERED: MAGNESIUM SULFATE / D5W 1 GM/100 ML BAG IV STA (17:40)
[2021-02-11 18:39] LABS: BUN Creatinine Ratio 13.9 (10-20); Creatinine Clr Calc Pharmacy 44.6 ml/min; Est GFR (African American) 111.6 ml/min; Est GFR (Non-African American) 96.3 ml/min; Magnesium 1.5 mg/dl (1.8-2.4); Phosphorus 1.9 mg/dl (2.5-4.9); Potassium 3.2 mmol/L (3.5-5.1)
[2021-02-11] MEDS: PROMETHAZINE HCL 12.5 MG in SODIUM CHLORIDE 0.9% 50 ML IV PRN (20:38)
[2021-02-11 22:13] LABS: BUN Creatinine Ratio 14.3 (10-20); Calcium 7.5 mg/dl (8.5-10.1); Creatinine Clr Calc Pharmacy 58.4 ml/min; Est GFR (Non-African American) 107.8 ml/min; Magnesium 2.5 mg/dl (1.8-2.4); Potassium 3.4 mmol/L (3.5-5.1)
[2021-02-11 22:15] LABS: Phosphorus 3.6 mg/dl (2.5-4.9)
[2021-02-11] MEDS ORDERED: POTASSIUM CHLORIDE / WTR 10 MEQ/100 ML PLCT IV STA (22:39)
[2021-02-11] MEDS ORDERED: POTASSIUM CHLORIDE 20 MEQ/15 ML UDC PO STA (22:52)
[2021-02-12] MEDS: LACTATED RINGER'S 1,000 ML IV SCH (00:50)
[2021-02-12 02:26] LABS: BUN Creatinine Ratio 12.7 (10-20); Calcium 7.9 mg/dl (8.5-10.1); Creatinine Clr Calc Pharmacy 71.3 ml/min; Est GFR (African American) 133.5 ml/min; Est GFR (Non-African American) 115.2 ml/min; Magnesium 2.4 mg/dl (1.8-2.4); Potassium 3.7 mmol/L (3.5-5.1)
[2021-02-12 02:27] LABS: Phosphorus 2.7 mg/dl (2.5-4.9)
[2021-02-12 05:01] LABS: Alanine Aminotransferase 18 U/L (12-78); Albumin Level 2.8 gm/dl (3.4-5.0); Aspartate Aminotransferase 12 U/L (15-37); BUN Creatinine Ratio 12.7 (10-20); Bilirubin Direct < 0.1 mg/dl (0-0.2); Blood Urea Nitrogen 5 mg/dl (7-18); Carbon Dioxide 21 mmol/L (21-32); Chloride 117 mmol/L (98-107); Creatinine Clr Calc Pharmacy 78.3 ml/min; Est GFR (African American) 137.7 ml/min; Est GFR (Non-African American) 118.8 ml/min; Glucose 81 mg/dl (70-99); Magnesium 2.1 mg/dl (1.8-2.4); Potassium 3.2 mmol/L (3.5-5.1); Sodium 143 mmol/L (136-145)
[2021-02-12 05:05] LABS: Alkaline Phosphatase 60 U/L (45-117); Bilirubin,Total 0.2 mg/dl (0.2-1); Phosphorus 1.9 mg/dl (2.5-4.9); Total Protein 5.2 gm/dl (6.4-8.2)
[2021-02-12] MEDS: ACETAMINOPHEN 500 MG TAB PO PRN ×2 (05:05→20:28)
[2021-02-12] MEDS: D5W AND 1/2NSS + 20MEQ KCL 20 MEQ/1,000 ML BAG IV SCH (05:07)
[2021-02-12 05:23] LABS: Eosinophils # (auto) 0.01 K/uL (0-0.5); Eosinophils % (auto) 0.1 %; Hematocrit (blood only) 33.6 % (37-47); Hemoglobin 11.3 g/dL (12.0-16.0); Immature Granulocytes # (auto) 0.02 K/uL (0.00-0.02); Immature Granulocytes % (auto) 0.3 %; Lymphocytes # (auto) 1.92 K/uL (1.2-3.4); Lymphocytes % (auto) 24.3 %; Mean Corpuscular Hgb Conc 33.6 g/dL (32-36); Mean Corpuscular Volume 92.3 fL (80-100); Mean Platelet Volume 9.2 fL (7.4-10.4); Monocytes # (auto) 0.81 K/uL (0.11-0.59); Monocytes % (auto) 10.2 %; Neutrophils # (auto) 5.15 K/uL (1.4-6.5); Neutrophils % (auto) 65.1 %; Platelet Count 309 K/uL (130-400); Red Blood Count 3.64 M/uL (4.2-5.4); White Blood Count 7.91 K/uL (4.8-10.8)
[2021-02-12] MEDS ORDERED: INSULIN ASPART 100 UNITS/ML 3 ML PEN SC SCH (06:00)
[2021-02-12] MEDS ORDERED: POTASSIUM PHOS 3 MMOL/1 ML INFUSION IV ONE (08:01)
[2021-02-12] MEDS: INSULIN ASPART 100 UNITS/ML 3 ML PEN SC SCH ×4 (08:11→21:33)
[2021-02-12] MEDS: CETIRIZINE HCL 10 MG TABLET PO SCH (08:20)
[2021-02-12] MEDS: HEPARIN SOD 5,000 UNIT/0.5 ML VIAL SQ SCH ×2 (08:21→20:25)
[2021-02-12] MEDS: predniSONE 1 MG TAB PO SCH (08:22)
[2021-02-12] MEDS: POTASSIUM CHLORIDE PWD 20 MEQ PACK PO SCH (08:22)
[2021-02-12] MEDS: MULTIVITAMIN TAB PO SCH (08:23)
[2021-02-12] MEDS: CHOLECALCIFEROL 1,000 UNITS 25 MCG TAB PO SCH (08:23)
[2021-02-12] MEDS: MONTELUKAST SODIUM 10 MG TABLET PO SCH (08:23)
[2021-02-12] MEDS: PANTOprazole 40 MG TAB PO SCH ×2 (08:23→20:28)
[2021-02-12] MEDS ORDERED: POTASSIUM PHOSPHATE 21 MMOL in SODIUM CHLORIDE 0.9% 500 ML IV ONE (08:30)
[2021-02-12] MEDS ORDERED: INSULIN GLARGINE SOLOSTAR 100 UNITS/ML 3 ML PEN SC ONE ×3 (11:45→17:00)
--- NOTE | 2021-02-12 15:10 | Pharmacy Report ---
Pharmacy Glycemic Short Note 2 - Date of Service February 12, 2021 - Glycemic Short BSG Results (Last 24 hours): 02/11/21 02/11/21 02/11/21 15:03 16:10 18:07 Glucose POC Glucose 132 H 167 H 143 H 02/11/21 02/11/21 02/11/21 18:12 20:06 21:46 Glucose 154 H 130 H POC Glucose 154 H 02/11/21 02/11/21 02/12/21 22:06 23:56 02:02 Glucose POC Glucose 132 H 140 H 121 H 02/12/21 02/12/21 02/12/21 02:03 03:58 04:39 Glucose 131 H 81 POC Glucose 101 H 02/12/21 02/12/21 02/12/21 04:59 07:09 11:23 Glucose POC Glucose 82 123 H 205 H OUTPATIENT ANTIDIABETIC REGIMEN: * Jardiance 25 mg daily, metformin 850mg TID * Patient chronically on low dose prednisone * A1c: 14.7% 02-11-21 ASSESSMENT: 02/12: * Patient transitioned off of the insulin infusion last evening after DKA/HSS resolution with 20 units of lantus. * AM BSGs were well controlled. I withheld basal until lunchtime to assess BSG trend. Will also add an evening Lantus scale based on BSG * NovoLog scale very tight for weight, however, given patients low BMI, weight based dosing will likely underestimate true needs. Will also add overnight checks. Patient is ordered and tolerating a diet. 02/11 * Patient presenting in DKA/HHS started on an insulin infusion. Patient continues with fluid resuscitation today wtih LR @ 200 mL/hr and D5W/1/2NSS +20meq KCL @ 175 mL/hr. * Q4 labs ordered, with most recent showing CO2 of 5 and an AG of 20. As discussed with ICU team will continue with IV insulin infusion at this time. Will consider addition of lantus this evening or tomorrow morning. Patient is NPO, home prednisone continues PLAN FOR INPATIENT GLYCEMIC CONTROL: * Hold outpatient oral diabetes medications * Basal insulin * Lantus: 10 units at lunch and per scale this evening (0 to 10 units based on BSG) * Bolus insulin * NovoLog per scale ACHS or Q6hrs while NPO * Goal Range: Low 110 mg/dL - High 140 mg/dL * Correction Factor: 20 mg/dL/unit * Nutritional / Prandial insulin per carb ratio of 1 unit per 6 grams CHO consumed PLAN FOR DISCHARGE: * TBD, per ICU rounds, patient previously unwilling to initiate insulin as an outpatient
--- NOTE | 2021-02-12 15:36 | Hospitalist Progress Note ---
Date of Service February 12, 2021 Assessment & Plan (1) Metabolic acidosis: Plan: Patient is a 50 yr old female presents with diabetic ketoacidosis. Diabetic ketoacidosis. 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 Hydroxychloroquine held for now Continue Prednisone 4 mg daily Mild persistent asthma: No signs of Exacerbation Continue home inhalers Elevated D-dimer Likely due to RA Given persistent tachycardia, will obtain CTA to rule out PE GERD Continue PPI Severe Protein calorie malnutrition BMI:13.3 Dietitian consulted Abnormal Thyroid function test ? Euthyroid Sick Syndrome Will repeat Thyroid function tomorrow DVT Px Heparin SQ Admission and Anticipated Discharge Date Admission Date: February 11, 2021 Subjective Patient is seen and examined at bedside Reports having headache Tolerates diet Dizziness and Dyspnea resolved Denies chest pain, abd pain Offers no other complaints Sinus tachycardia on monitor Review of Systems Review of Systems: All systems reviewed & are unremarkable except as noted in Subjective Physical Exam Physical Exam: Physical Exam: Vitals signs as noted above General Appearance:Very thin, Frail, Chronic ill appearing, no apparent distress Head: normocephalic, Atraumatic Eyes: normal inspection, EOMI Neck: supple, Trachea midline Respiratory/Chest: Normal breath sounds, CTA, No accessory muscle use Cardiovascular: S1, S2, No murmur, +Tachycardic Abdomen/GI:Soft, Non tender, Bowel sounds present Extremities/Musculoskeletal:normal inspection, no edema, +Rheumatoid Arthritis changes Neurologic/Psych:AAOX3, grossly no focal neurological deficits Skin: normal color, warm Results & Data Results & Data ([facility]) Vital Signs (Past 12 Hours) Vital Signs Temp Pulse Pulse Resp BP BP Pulse Ox 02/12/21 13:43 117 H 29 H 123/74 02/12/21 08:20 108 H 21 110/70 02/12/21 08:00 103 H 02/12/21 06:00 02/12/21 04:00 36.8 C 92 H 15 116/72 100 02/12/21 03:56 98 H 15 100 Pulse Ox 02/12/21 13:43 02/12/21 08:20 02/12/21 08:00 02/12/21 06:00 100 02/12/21 04:00 02/12/21 03:56 Laboratory Results Short CBC 02/12/21 Range/Units 04:39 WBC 7.91 (4.8-10.8) K/uL Hgb 11.3 L D (12.0-16.0) g/dL Hct 33.6 L (37-47) % Plt Count 309 (130-400) K/uL BMP 02/11/21 02/11/21 02/12/21 18:12 21:46 02:03 Sodium 137 137 142 Potassium 3.2 L D 3.4 L 3.7 Chloride 110 H 110 H 116 H Carbon Dioxide 18 L 19 L 21 BUN 10 8 6 L Creatinine 0.72 0.55 L 0.45 L Glucose 154 H 130 H 131 H Calcium 8.0 L 7.5 L 7.9 L 02/12/21 04:39 Sodium 143 Potassium 3.2 L Chloride 117 H Carbon Dioxide 21 BUN 5 L Creatinine 0.41 L Glucose 81 Calcium 8.0 L Liver Function 02/12/21 Range/Units 04:39 Total Bilirubin 0.2 (0.2-1) mg/dl Direct Bilirubin < 0.1 (0-0.2) mg/dl AST 12 L (15-37) U/L ALT 18 (12-78) U/L Alkaline Phosphatase 60 (45-117) U/L Albumin 2.8 L (3.4-5.0) gm/dl
[2021-02-12] MEDS ORDERED: INSULIN GLARGINE SOLOSTAR 100 UNITS/ML 3 ML PEN SC SCH (21:00)
[2021-02-13] MEDS: INSULIN ASPART 100 UNITS/ML 3 ML PEN SC SCH ×6 (00:53→21:44)
[2021-02-13] MEDS: PROMETHAZINE HCL 12.5 MG in SODIUM CHLORIDE 0.9% 50 ML IV PRN (00:54)
[2021-02-13] MEDS: ACETAMINOPHEN 500 MG TAB PO PRN ×3 (03:40→19:42)
[2021-02-13 05:08] LABS: Basophils # (auto) 0.01 K/uL (0-0.2); Basophils % (auto) 0.2 %; Eosinophils # (auto) 0.01 K/uL (0-0.5); Eosinophils % (auto) 0.2 %; Hemoglobin 12.6 g/dL (12.0-16.0); Immature Granulocytes # (auto) 0.01 K/uL (0.00-0.02); Immature Granulocytes % (auto) 0.2 %; Lymphocytes # (auto) 1.94 K/uL (1.2-3.4); Lymphocytes % (auto) 34.3 %; Mean Corpuscular Hgb Conc 34.1 g/dL (32-36); Mean Corpuscular Volume 91.1 fL (80-100); Mean Platelet Volume 9.5 fL (7.4-10.4); Monocytes # (auto) 0.39 K/uL (0.11-0.59); Monocytes % (auto) 6.9 %; Neutrophils # (auto) 3.29 K/uL (1.4-6.5); Neutrophils % (auto) 58.2 %; Platelet Count 293 K/uL (130-400); RDW Coefficient of Variation 14.5 % (11.5-14.5); RDW Standard Deviation 48.3 fL (36.4-46.3); Red Blood Count 4.06 M/uL (4.2-5.4); White Blood Count 5.65 K/uL (4.8-10.8)
[2021-02-13] MEDS: INSULIN REGULAR 250 UNITS in SODIUM CHLORIDE 0.9% 247.5 ML IV SCH (05:12)
[2021-02-13 05:22] LABS: D Dimer 500 ug/L FEU (0-500)
[2021-02-13 05:37] LABS: Alanine Aminotransferase 22 U/L (12-78); Albumin Level 3.1 gm/dl (3.4-5.0); Aspartate Aminotransferase 14 U/L (15-37); BUN Creatinine Ratio 26.8 (10-20); Bilirubin Direct < 0.1 mg/dl (0-0.2); Blood Urea Nitrogen 14 mg/dl (7-18); Calcium 8.8 mg/dl (8.5-10.1); Carbon Dioxide 28 mmol/L (21-32); Chloride 106 mmol/L (98-107); Creatinine Clr Calc Pharmacy 68.6 ml/min; Est GFR (African American) 128.1 ml/min; Est GFR (Non-African American) 110.6 ml/min; Glucose 154 mg/dl (70-99); Magnesium 1.9 mg/dl (1.8-2.4); Potassium 3.1 mmol/L (3.5-5.1); Sodium 139 mmol/L (136-145)
[2021-02-13 05:46] LABS: Alkaline Phosphatase 71 U/L (45-117); Bilirubin,Total 0.3 mg/dl (0.2-1); Phosphorus 3.1 mg/dl (2.5-4.9); T4 Free Thyroxine 1.02 ng/dl (0.8-1.6); Thyroid Stimulating Hormone 0.026 uIu/ml (0.300-4.500); Total Protein 6.2 gm/dl (6.4-8.2)
[2021-02-13] MEDS: PANTOprazole 40 MG TAB PO SCH ×2 (08:27→21:45)
[2021-02-13] MEDS: CHOLECALCIFEROL 1,000 UNITS 25 MCG TAB PO SCH (08:27)
[2021-02-13] MEDS: POTASSIUM CHLORIDE PWD 20 MEQ PACK PO SCH (08:29)
[2021-02-13] MEDS: predniSONE 1 MG TAB PO SCH (08:29)
[2021-02-13] MEDS: CETIRIZINE HCL 10 MG TABLET PO SCH (08:29)
[2021-02-13] MEDS: MULTIVITAMIN TAB PO SCH (08:29)
[2021-02-13] MEDS: MONTELUKAST SODIUM 10 MG TABLET PO SCH (08:29)
[2021-02-13] MEDS: HEPARIN SOD 5,000 UNIT/0.5 ML VIAL SQ SCH ×2 (08:33→19:43)
[2021-02-13] MEDS ORDERED: POTASSIUM CHLORIDE CRTAB 20 MEQ TABCR PO STA (08:53)
[2021-02-13] MEDS: NSS + 20MEQ KCL 20 MEQ/1,000 ML BAG IV SCH ×2 (11:49→21:45)
--- NOTE | 2021-02-13 15:33 | Hospitalist Progress Note ---
Date of Service February 13, 2021 Assessment & Plan (1) DKA (diabetic ketoacidosis): Plan: Patient is a 50 yr old female presents with diabetic ketoacidosis. Diabetic ketoacidosis. Metabolic Acidosis secondary to above Poorly Controlled DM HbA1C:14.7 Refused Insulin therapy in the past as per records/Patient No infections have been identified Blood Cx:No growth to date On Jardiance and Metformin at home Non compliance with Blood glucose checks Ordered work up: Islet Cell Ab, Insulin Autoantibody, Anti ALEJANDRO-65--pending Appreciate Asphalt Spreader Help Master Control Engineer consulted Continue PPI Has been getting subcu insulin Plan will be to continue subcu insulin and start Jardiance as an outpatient and stop Metformin on discharge Tachycardia Has been negative balance of more than 1800mL Likely the cause for tachycardia We will give 2 L of normal saline infusion and monitor vitals Repeat PRP tomorrow (2) Metabolic acidosis: Plan: As above Electrolyte imbalance Hypomagnesemia Hypophosphatemia Hypokalemia Replace electrolytes as needed Elevated D-dimer Likely due to RA Given persistent tachycardia, will obtain CTA to rule out PE D-dimer has been decreased to 500 and doubt any pulmonary embolism Tachycardia seems to be secondary to dehydration GERD Continue PPI Abnormal Thyroid function test Euthyroid Sick Syndrome Will repeat Thyroid function tomorrow Free T3 and T4 levels are normal Doubt any hypothyroidism Low TSH secondary to acute infection Advised to have a repeat test as an outpatient in about 2 to 3 weeks DVT Px Heparin SQ (3) Rheumatoid arthritis: Plan: Rheumatoid arthritis. Hydroxychloroquine held for now Continue Prednisone 4 mg daily Left wrist nodule is tender without any acute rheumatoid arthritis We will restart hydroxychloroquine (4) Asthma: Plan: Remains stable (5) Low body mass index (BMI): Plan: Has been losing weight for a while likely secondary to uncontrolled diabetes as an outpatient Severe Protein calorie malnutrition BMI:13.3 Dietitian consulted Admission and Anticipated Discharge Date Admission Date: February 11, 2021 Subjective 02/13/2021 The patient was seen and examined in ICU She complains of generalized weakness but otherwise stable Denies any nausea and or vomiting, no fever and no chills, no chest pain and no palpitation Review of Systems Review of Systems: All systems reviewed and are unremarkable except as noted below Constitutional: + malaise Physical Exam Physical Exam: Lying in bed comfortably Constitutional: + ill appearing and + thin; + not well nourished and no acute distress Eyes: PERRL, conjunctivae normal, anicteric sclerae ENMT: external ear and nose normal, oropharynx normal Neck: trachea midline, no thyromegaly Respiratory: normal respiratory effort, lungs clear to auscultation Cardiovascular: Rate/Rhythm: regular rate, regular rhythm and + tachycardic Gastrointestinal (Abdomen): normal bowel sounds, soft, nontender, no hepatosplenomegaly Musculoskeletal: Has rheumatoid arthritis changes in the hands with rheumatoid nodule. The left wrist nodule is tender. No acute arthritis Neurologic: moves all extremities Psychiatric: A+Ox3, euthymic affect Lymphatic: no cervical or axillary lymphadenopathy Results & Data Results & Data ([facility]) Vital Signs (Past 12 Hours) Vital Signs Temp Pulse Pulse Resp BP Pulse Ox 02/13/21 08:00 101 H 02/13/21 04:00 36.6 C 86 16 126/86 100 Laboratory Results Short CBC 02/13/21 Range/Units 04:45 WBC 5.65 (4.8-10.8) K/uL Hgb 12.6 (12.0-16.0) g/dL Hct 37.0 (37-47) % Plt Count 293 (130-400) K/uL BMP 02/13/21 04:45 Sodium 139 Potassium 3.1 L Chloride 106 Carbon Dioxide 28 BUN 14 D Creatinine 0.51 L Glucose 154 H Calcium 8.8 Liver Function 02/13/21 Range/Units 04:45 Total Bilirubin 0.3 (0.2-1) mg/dl Direct Bilirubin < 0.1 (0-0.2) mg/dl AST 14 L (15-37) U/L ALT 22 (12-78) U/L Alkaline Phosphatase 71 (45-117) U/L Albumin 3.1 L (3.4-5.0) gm/dl Medications Administered Current Inpatient Medications Acetaminophen (Acetaminophen 500 Mg Tab) 500 mg PO Q6H PRN PRN Reason: Moderate Pain Stop: 03/13/21 09:39 Last Admin: 02/13/21 11:58 Dose: 500 mg Documented by: Albuterol (Albuterol Hfa 8 Gm Inhaler) 2 puffs INH Q6 PRN PRN Reason: sob, wheeze Stop: 03/13/21 05:50 Cetirizine HCl (Cetirizine Hcl 10 Mg Tablet) 10 mg PO DAILY [facility] Stop: 03/13/21 08:59 Last Admin: 02/13/21 08:29 Dose: 10 mg Documented by: Dextrose (Dextrose 50% 50 Ml Syringe) 25 - 50 ml IV UD PRN; Protocol PRN Reason: Hypoglycemia Protocol Stop: 03/13/21 06:29 Glucagon (Glucagon For Inj 1 Mg Vial) 1 mg IM UD PRN; Protocol PRN Reason: Hypoglycemia Protocol Stop: 03/13/21 06:29 Glucose (Glucose 40% Gel 15 Gm Tube) 15 - 30 gm PO UD PRN; Protocol PRN Reason: Hypoglycemia Protocol Stop: 03/13/21 06:29 Glucose (Glucose 10 Tabs/Tube) 4 - 8 tabs PO UD PRN; Protocol PRN Reason: Hypoglycemia Protocol Stop: 03/13/21 06:29 Heparin Sodium (Porcine) (Heparin Sod 5,000 Unit/0.5 Ml Vial) 5,000 units SQ Q12 [facility] Stop: 03/13/21 08:59 Last Admin: 02/13/21 08:33 Dose: Not Given Documented by: Hydroxychloroquine Sulfate (Hydroxychloroquine Sulfate 200 Mg Tab) 200 mg PO DAILY [facility] Stop: 03/13/21 08:59 Last Admin: 02/11/21 09:21 Dose: Not Given Documented by: Promethazine HCl 12.5 mg/ (Sodium Chloride) 50.5 mls @ 202 mls/hr IV Q6H PRN PRN Reason: Nausea And Vomiting Stop: 03/13/21 20:22 Last Infusion: 02/13/21 01:09 Dose: Infused Documented by: Potassium Chloride/Sodium Chloride (Normal Saline W/20 Meq Kcl) 20 meq in 1,000 mls @ 100 mls/hr IV .Q10H [facility] Stop: 02/14/21 17:14 Last Admin: 02/13/21 11:49 Dose: 100 mls/hr Documented by: Insulin Aspart (Insulin Aspart 100 Units/Ml 3 Ml Pen) 0 units SC ACHS [facility]; Protocol Stop: 03/14/21 05:59 Last Admin: 02/13/21 11:49 Dose: 18 units Documented by: Insulin Glargine (Insulin Glargine Solostar 100 Units/Ml 3 Ml Pen) 0 units SC QDD [facility]; Protocol Stop: 03/15/21 16:29 Miscellaneous (Carbohydrates For Hypoglycemia ) 15 - 30 gm PO UD PRN PRN Reason: Hypoglycemia Treatment Stop: 03/13/21 06:29 Miscellaneous Information (Pharmacy Glycemic Mgmt Consult) 1 ea N/A UD PRN PRN Reason: Consult Stop: 03/13/21 06:03 Montelukast Sodium (Montelukast Sodium 10 Mg Tablet) 10 mg PO DAILY [facility] Stop: 03/13/21 08:59 Last Admin: 02/13/21 08:29 Dose: 10 mg Documented by: Multivitamins (Multivitamin Tab) 1 tab PO DAILY [facility] Stop: 03/13/21 08:59 Last Admin: 02/13/21 08:29 Dose: 1 tab Documented by: Pantoprazole Sodium (Pantoprazole 40 Mg Tab) 40 mg PO BID [facility] Stop: 03/13/21 08:59 Last Admin: 02/13/21 08:27 Dose: 40 mg Documented by: Potassium Chloride (Potassium Chloride Pwd 20 Meq Pack) 40 meq PO QAM [facility] Stop: 03/14/21 08:59 Last Admin: 02/13/21 08:29 Dose: 40 meq Documented by: Prednisone (Prednisone 1 Mg Tab) 4 mg PO DAILY [facility] Stop: 03/13/21 08:59 Last Admin: 02/13/21 08:29 Dose: 4 mg Documented by: Vitamin D (Cholecalciferol 1,000 Units 25 Mcg Tab) 2,000 units PO DAILY [facility] Stop: 03/13/21 08:59 Last Admin: 02/13/21 08:27 Dose: 2,000 units Documented by: (1) DKA (diabetic ketoacidosis) Diabetes mellitus complication detail: without coma Diabetes mellitus type: type 2 Qualified Code(s): E11.10 - Type 2 diabetes mellitus with ketoacidosis without coma
[2021-02-13] MEDS ORDERED: INSULIN GLARGINE SOLOSTAR 100 UNITS/ML 3 ML PEN SC SCH (16:30)
[2021-02-14 07:51] LABS: Hemoglobin 12.3 g/dL (12.0-16.0); Mean Corpuscular Hemoglobin 31.1 pg (25-34); Mean Corpuscular Hgb Conc 33.2 g/dL (32-36); Mean Corpuscular Volume 93.7 fL (80-100); Mean Platelet Volume 9.7 fL (7.4-10.4); Platelet Count 276 K/uL (130-400); RDW Coefficient of Variation 14.6 % (11.5-14.5); RDW Standard Deviation 50.2 fL (36.4-46.3); Red Blood Count 3.95 M/uL (4.2-5.4)
[2021-02-14] MEDS: INSULIN ASPART 100 UNITS/ML 3 ML PEN SC SCH ×3 (07:57→16:55)
[2021-02-14] MEDS: NSS + 20MEQ KCL 20 MEQ/1,000 ML BAG IV SCH (07:58)
[2021-02-14] MEDS: HEPARIN SOD 5,000 UNIT/0.5 ML VIAL SQ SCH (08:00)
[2021-02-14] MEDS: HYDROXYCHLOROQUINE SULFATE 200 MG TAB PO SCH (08:00)
[2021-02-14] MEDS: CETIRIZINE HCL 10 MG TABLET PO SCH (08:00)
[2021-02-14] MEDS: CHOLECALCIFEROL 1,000 UNITS 25 MCG TAB PO SCH (08:01)
[2021-02-14] MEDS: MONTELUKAST SODIUM 10 MG TABLET PO SCH (08:01)
[2021-02-14] MEDS: PANTOprazole 40 MG TAB PO SCH (08:01)
[2021-02-14] MEDS: MULTIVITAMIN TAB PO SCH (08:01)
[2021-02-14] MEDS: POTASSIUM CHLORIDE PWD 20 MEQ PACK PO SCH (08:01)
[2021-02-14] MEDS: predniSONE 1 MG TAB PO SCH (08:02)
[2021-02-14 08:09] LABS: Basophils # (auto) 0.01 K/uL (0-0.2); Basophils % (auto) 0.2 %; Eosinophils # (auto) 0.07 K/uL (0-0.5); Eosinophils % (auto) 1.6 %; Immature Granulocytes # (auto) 0.01 K/uL (0.00-0.02); Immature Granulocytes % (auto) 0.2 %; Lymphocytes # (auto) 2.23 K/uL (1.2-3.4); Lymphocytes % (auto) 50.7 %; Monocytes # (auto) 0.33 K/uL (0.11-0.59); Monocytes % (auto) 7.5 %; Neutrophils # (auto) 1.75 K/uL (1.4-6.5); Neutrophils % (auto) 39.8 %
[2021-02-14 08:14] LABS: Alanine Aminotransferase 19 U/L (12-78); Albumin Level 2.6 gm/dl (3.4-5.0); Aspartate Aminotransferase 15 U/L (15-37); BUN Creatinine Ratio 36.7 (10-20); Blood Urea Nitrogen 15 mg/dl (7-18); Carbon Dioxide 29 mmol/L (21-32); Chloride 109 mmol/L (98-107); Est GFR (African American) 138.8 ml/min; Est GFR (Non-African American) 119.8 ml/min; Glucose 88 mg/dl (70-99); Magnesium 1.8 mg/dl (1.8-2.4); Potassium 3.9 mmol/L (3.5-5.1); Sodium 142 mmol/L (136-145)
[2021-02-14 08:34] LABS: Albumin Globulin Ratio 0.8 (0.9-2); Alkaline Phosphatase 58 U/L (45-117); Bilirubin Direct < 0.1 mg/dl (0-0.2); Bilirubin,Total 0.3 mg/dl (0.2-1); Globulin 3.1 gm/dl (2.5-4.0); Phosphorus 3.8 mg/dl (2.5-4.9); Total Protein 5.7 gm/dl (6.4-8.2)
--- NOTE | 2021-02-14 08:48 | Pharmacy Report ---
Pharmacy Glycemic Short Note 2 - Date of Service February 14, 2021 - Glycemic Short BSG Results (Last 24 hours): 02/13/21 02/13/21 02/13/21 11:30 16:11 20:58 Glucose POC Glucose 150 H 93 199 H 02/14/21 02/14/21 02/14/21 03:07 03:38 07:23 Glucose 88 POC Glucose 69 L* 88 02/14/21 07:23 Glucose POC Glucose 78 OUTPATIENT ANTIDIABETIC REGIMEN: * Jardiance 25 mg daily, metformin 850mg TID * Patient chronically on low dose prednisone * A1c: 14.7% 02-11-21 ASSESSMENT: 02/13/21 * Patient's blood sugars yesterday were [id number] mg/dL. Patient received 20 units of Lantus plus 44 units of bolus (total of 64 units of insulin). * Patient remains on prednisone 4 mg daily (home-dose). * Fasting trending down significantly 126 mg/dL vs 78 mg/dL. Reduce basal by 20% to 15 units daily. * Post-prandial blood sugars trend upwards slightly then downwards indicating patient requires higher carbohydrate coverage but less correction factor. This is common with steroids. Adjust accordingly. 02/12: * Patient transitioned off of the insulin infusion last evening after DKA/HSS resolution with 20 units of lantus. * AM BSGs were well controlled. I withheld basal until lunchtime to assess BSG trend. Will also add an evening Lantus scale based on BSG * NovoLog scale very tight for weight, however, given patients low BMI, weight based dosing will likely underestimate true needs. Will also add overnight checks. Patient is ordered and tolerating a diet. 02/11 * Patient presenting in DKA/HHS started on an insulin infusion. Patient continues with fluid resuscitation today wtih LR @ 200 mL/hr and D5W/1/2NSS +20meq KCL @ 175 mL/hr. * Q4 labs ordered, with most recent showing CO2 of 5 and an AG of 20. As discussed with ICU team will continue with IV insulin infusion at this time. Will consider addition of lantus this evening or tomorrow morning. Patient is NPO, home prednisone continues PLAN FOR INPATIENT GLYCEMIC CONTROL: * Hold outpatient oral diabetes medications * Basal insulin * Lantus: 15 units HS * Bolus insulin * NovoLog per scale ACHS or Q6hrs while NPO * Goal Range: Low 110 mg/dL - High 140 mg/dL * Correction Factor: 25 mg/dL/unit * Nutritional / Prandial insulin per carb ratio of 1 unit per 5 grams CHO consumed PLAN FOR DISCHARGE: * Discontinue metformin and Jardiance until diagnosis of T1 vs RIK vs T2 can be established. There is an increased risk of DKA in T1DM with SGLT-2 inhibitors. * Recommend Lantus 15 units nightly. Recommend continued follow-up with [facility] clinic [facility]. * Recommend carbohydrate ratio of 1 unit per 5 grams of carbohydrates consumed. * Recommend correction factor of 1 unit per 25 mg/dL over 150 mg/dL. * [facility] as these are recommendations based upon current hospitalization (3 days).
[2021-02-14] MEDS: ACETAMINOPHEN 500 MG TAB PO PRN (09:38)
[2021-02-14 11:17] VITALS: O2SAT 98
--- NOTE | 2021-02-14 13:22 | Hospitalist Progress Note ---
Date of Service February 14, 2021 Assessment & Plan (1) DKA (diabetic ketoacidosis): Plan: Patient is a 50 yr old female presents with diabetic ketoacidosis. Diabetic ketoacidosis. Metabolic Acidosis secondary to above Poorly Controlled DM HbA1C:14.7 Refused Insulin therapy in the past as per records/Patient No infections have been identified Blood Cx:No growth to date On Jardiance and Metformin at home Non compliance with Blood glucose checks Ordered work up: Islet Cell Ab, Insulin Autoantibody, Anti ALEJANDRO-65--pending Appreciate Shipping Packer Help Grocery Clerk Stocking consulted-will have insulin on discharge and will not take any oral Metformin and/or Jardiance. Continue PPI Has been getting subcu insulin Plan will be to continue subcu insulin and start Jardiance as an outpatient and stop Metformin on discharge She will get PT and OT evaluation this afternoon and if she does good on that she will be discharged this afternoon Tachycardia Has been negative balance of more than 1800mL Likely the cause for tachycardia We will give 2 L of normal saline infusion and monitor vitals Repeat PRP tomorrow-no electrolyte abnormality Tachycardia resolved (2) Metabolic acidosis: Plan: As above Electrolyte imbalance Hypomagnesemia Hypophosphatemia Hypokalemia Replace electrolytes as needed Elevated D-dimer Likely due to RA Given persistent tachycardia, will obtain CTA to rule out PE D-dimer has been decreased to 500 and doubt any pulmonary embolism Tachycardia seems to be secondary to dehydration GERD Continue PPI Abnormal Thyroid function test Euthyroid Sick Syndrome Will repeat Thyroid function tomorrow Free T3 and T4 levels are normal Doubt any hypothyroidism Low TSH secondary to acute infection Advised to have a repeat test as an outpatient in about 2 to 3 weeks DVT Px Heparin SQ (3) Rheumatoid arthritis: Plan: Rheumatoid arthritis. Hydroxychloroquine held for now Continue Prednisone 4 mg daily Left wrist nodule is tender without any acute rheumatoid arthritis We will restart hydroxychloroquine (4) Asthma: Plan: Remains stable (5) Low body mass index (BMI): Plan: Has been losing weight for a while likely secondary to uncontrolled diabetes as an outpatient Severe Protein calorie malnutrition BMI:13.3 Dietitian consulted-appreciate input and recommendation Plan: Likely discharge this afternoon following PT and OT evaluation Admission and Anticipated Discharge Date Admission Date: February 11, 2021 Subjective 02/13/2021 The patient was seen and examined in ICU She complains of generalized weakness but otherwise stable Denies any nausea and or vomiting, no fever and no chills, no chest pain and no palpitation 02/14/2021 The patient was seen and examined in telemetry unit She has been feeling a lot better but remains weak She has been smiling and does not have any more tachycardia She is going to have PT and OT evaluation before discharge Review of Systems Review of Systems: All systems reviewed and are unremarkable except as noted below Constitutional: + malaise Physical Exam Physical Exam: Lying in bed comfortably Constitutional: + ill appearing and + thin; + not well nourished and no acute distress Eyes: PERRL, conjunctivae normal, anicteric sclerae ENMT: external ear and nose normal, oropharynx normal Neck: trachea midline, no thyromegaly Respiratory: normal respiratory effort, lungs clear to auscultation Cardiovascular: Rate/Rhythm: regular rate, regular rhythm and + tachycardic Gastrointestinal (Abdomen): normal bowel sounds, soft, nontender, no hepatosplenomegaly Neurologic: moves all extremities Psychiatric: A+Ox3, euthymic affect Lymphatic: no cervical or axillary lymphadenopathy Results & Data Results & Data ([facility]) Vital Signs (Past 12 Hours) Vital Signs Temp Pulse Pulse Resp BP Pulse Ox 02/14/21 11:14 36.8 C 98 H 16 130/83 98 02/14/21 08:00 83 02/14/21 07:25 36.4 C L 91 H 16 130/86 99 02/14/21 03:40 37.0 C 102 H 17 120/76 99 Laboratory Results Short CBC 02/14/21 Range/Units 07:23 WBC 4.40 L (4.8-10.8) K/uL Hgb 12.3 (12.0-16.0) g/dL Hct 37.0 (37-47) % Plt Count 276 (130-400) K/uL BMP 02/14/21 07:23 Sodium 142 Potassium 3.9 D Chloride 109 H Carbon Dioxide 29 BUN 15 Creatinine 0.40 L Glucose 88 Calcium 9.0 Liver Function 02/14/21 Range/Units 07:23 Total Bilirubin 0.3 (0.2-1) mg/dl Direct Bilirubin < 0.1 (0-0.2) mg/dl AST 15 (15-37) U/L ALT 19 (12-78) U/L Alkaline Phosphatase 58 (45-117) U/L Albumin 2.6 L (3.4-5.0) gm/dl Medications Administered Current Inpatient Medications Acetaminophen (Acetaminophen 500 Mg Tab) 500 mg PO Q6H PRN PRN Reason: Moderate Pain Stop: 03/13/21 09:39 Last Admin: 02/14/21 09:38 Dose: 500 mg Documented by: Albuterol (Albuterol Hfa 8 Gm Inhaler) 2 puffs INH Q6 PRN PRN Reason: sob, wheeze Stop: 03/13/21 05:50 Cetirizine HCl (Cetirizine Hcl 10 Mg Tablet) 10 mg PO DAILY [facility] Stop: 03/13/21 08:59 Last Admin: 02/14/21 08:00 Dose: Not Given Documented by: Dextrose (Dextrose 50% 50 Ml Syringe) 25 - 50 ml IV UD PRN; Protocol PRN Reason: Hypoglycemia Protocol Stop: 03/13/21 06:29 Glucagon (Glucagon For Inj 1 Mg Vial) 1 mg IM UD PRN; Protocol PRN Reason: Hypoglycemia Protocol Stop: 03/13/21 06:29 Glucose (Glucose 40% Gel 15 Gm Tube) 15 - 30 gm PO UD PRN; Protocol PRN Reason: Hypoglycemia Protocol Stop: 03/13/21 06:29 Glucose (Glucose 10 Tabs/Tube) 4 - 8 tabs PO UD PRN; Protocol PRN Reason: Hypoglycemia Protocol Stop: 03/13/21 06:29 Heparin Sodium (Porcine) (Heparin Sod 5,000 Unit/0.5 Ml Vial) 5,000 units SQ Q12 [facility] Stop: 03/13/21 08:59 Last Admin: 02/14/21 08:00 Dose: Not Given Documented by: Hydroxychloroquine Sulfate (Hydroxychloroquine Sulfate 200 Mg Tab) 200 mg PO DAILY [facility] Stop: 03/13/21 08:59 Last Admin: 02/14/21 08:00 Dose: Not Given Documented by: Promethazine HCl 12.5 mg/ (Sodium Chloride) 50.5 mls @ 202 mls/hr IV Q6H PRN PRN Reason: Nausea And Vomiting Stop: 03/13/21 20:22 Last Infusion: 02/13/21 01:09 Dose: Infused Documented by: Potassium Chloride/Sodium Chloride (Normal Saline W/20 Meq Kcl) 20 meq in 1,000 mls @ 100 mls/hr IV .Q10H [facility] Stop: 02/14/21 17:14 Last Admin: 02/14/21 07:58 Dose: 100 mls/hr Documented by: Insulin Aspart (Insulin Aspart 100 Units/Ml 3 Ml Pen) 0 units SC ACHS [facility]; Protocol Stop: 03/14/21 05:59 Last Admin: 02/14/21 12:05 Dose: 17 units Documented by: Insulin Glargine (Insulin Glargine Solostar 100 Units/Ml 3 Ml Pen) 15 units SC QDD [facility]; Protocol Stop: 03/16/21 16:29 Miscellaneous (Carbohydrates For Hypoglycemia ) 15 - 30 gm PO UD PRN PRN Reason: Hypoglycemia Treatment Stop: 03/13/21 06:29 Miscellaneous Information (Pharmacy Glycemic Mgmt Consult) 1 ea N/A UD PRN PRN Reason: Consult Stop: 03/13/21 06:03 Montelukast Sodium (Montelukast Sodium 10 Mg Tablet) 10 mg PO DAILY [facility] Stop: 03/13/21 08:59 Last Admin: 02/14/21 08:01 Dose: 10 mg Documented by: Multivitamins (Multivitamin Tab) 1 tab PO DAILY [facility] Stop: 03/13/21 08:59 Last Admin: 02/14/21 08:01 Dose: 1 tab Documented by: Pantoprazole Sodium (Pantoprazole 40 Mg Tab) 40 mg PO BID [facility] Stop: 03/13/21 08:59 Last Admin: 02/14/21 08:01 Dose: 40 mg Documented by: Potassium Chloride (Potassium Chloride Pwd 20 Meq Pack) 40 meq PO QAM [facility] Stop: 03/14/21 08:59 Last Admin: 02/14/21 08:01 Dose: 40 meq Documented by: Prednisone (Prednisone 1 Mg Tab) 4 mg PO DAILY [facility] Stop: 03/13/21 08:59 Last Admin: 02/14/21 08:02 Dose: 4 mg Documented by: Vitamin D (Cholecalciferol 1,000 Units 25 Mcg Tab) 2,000 units PO DAILY [facility] Stop: 03/13/21 08:59 Last Admin: 02/14/21 08:01 Dose: 2,000 units Documented by: (1) DKA (diabetic ketoacidosis) Diabetes mellitus complication detail: without coma Diabetes mellitus type: type 2 Qualified Code(s): E11.10 - Type 2 diabetes mellitus with ketoacidosis without coma
[2021-02-14 15:27] VITALS: BP 130/97; TEMP 97.9
[2021-02-14 16:09] VITALS: PULSE 110
[2021-02-14] MEDS ORDERED: INSULIN GLARGINE SOLOSTAR 100 UNITS/ML 3 ML PEN SC SCH (16:30)
--- NOTE | 2021-02-15 07:47 | Discharge Summary ---
Date of Service February 15, 2021 Admission HPI Per Admitting Provider DICTATED BY: Rogerio Lizama MD DATE OF ADMISSION: 02/11/2021. CHIEF COMPLAINT: Shortness of breath, DKA. HISTORY OF PRESENT ILLNESS: This 50-year-old female with past medical history significant for hyperlipidemia, type 2 diabetes, asthma mild, persistent, allergic rhinitis, constipation, GERD, celiac disease, nausea, protein calorie malnutrition, uterine leiomyoma, steroid-induced osteoporosis, rheumatoid arthritis, benign neoplasm of breast, dizziness. The patient lives with her , was brought in because of complaint of shortness of breath. The patient has been somewhat lethargic and somewhat restless, complains of shortness of breath and asking for something to drink and she states her shortness of breath started because of cutting trees couple of days ago and she is allergic to those trees. As per , she is getting more short of breath since last 2 days, but today evening was worse and she also getting weak and tired . Though baseline generally, she is somewhat weak, but today it got worse. As per she doesn"t check sugars regularly and when checked sugars were running as per in 200s as it is running today. As per the Epic, HbA1c in November was more than 10 but as per , does not want to be on insulin. She is currently taking metformin, Jardiance. No cough, no fever. No nausea, no vomiting, no complaints of abdominal pain, no headache. Somewhat constipated. Micturating okay. No fevers. The patient did not receive any COVID vaccine. In the ER she is somewhat tachypneic, tachycardic. White count is 19, D-dimer is 1570. Venous blood gas pH of 6.9 and CO2 is only 4. Blood sugar is 333. TSH was 0.069. SARS-CoV-2 PCR negative. Chest x-ray is okay. Admission Exam Per Admitting Provider GENERAL: The patient is thin and frail, somewhat confused. VITAL SIGNS: Temperature 36.4, pulse 111, respiratory rate 25, blood pressure 115/93, oxygen 98% on room air. HEENT: Pupils equal, round and reactive to light. Oral mucosa dry. NECK: No JVD, no neck masses. HEART: S1 and S2 heard. Tachycardia. No murmurs. RESPIRATORY SYSTEM: Normal AP diameter. Mild tachypnea. No wheezing, no crackles. ABDOMEN: Soft, bowel sounds present, nontender, no distention. CENTRAL NERVOUS SYSTEM: Alert and somewhat drowsy. Oriented to name and place, can tell the date of . Obeys simple commands. Speaking in low volumes. Moves extremities. EXTREMITIES: No edema, no erythema. Principal Diagnosis Diabetic ketoacidosis, hemoglobin A1c 14.7, controlled rheumatoid arthritis, protein calorie malnutrition, low TSH with normal T3 and T4. Discharge Exam Constitutional + ill appearing and + thin; + not well nourished and no acute distress Eyes PERRL, conjunctivae normal, anicteric sclerae ENMT external ear and nose normal, oropharynx normal Neck trachea midline, no thyromegaly Respiratory normal respiratory effort, lungs clear to auscultation Cardiovascular Rate/Rhythm: regular rate, regular rhythm and + tachycardic Gastrointestinal (Abdomen) normal bowel sounds, soft, nontender, no hepatosplenomegaly Neurologic moves all extremities Psychiatric A+Ox3, euthymic affect Lymphatic no cervical or axillary lymphadenopathy Discharge Data Allergies Allergy/AdvReac Type Severity Reaction Status Date / Time latex Allergy Intermediate rash, Verified 02/11/21 02:32 breathing problem wheat Allergy Mild HIVES Unverified 02/11/21 02:32 propylthiouracil Allergy Unknown Unknown Verified 02/11/21 02:32 Sulfa (Sulfonamide Allergy UNKN Unverified 02/11/21 02:32 Antibiotics) methimazole AdvReac Unknown ITCHY Verified 02/11/21 02:32 Consultations 02/11/21 03:21 ED Decision to Admit Stat 02/11/21 05:51 Consult Aircraft Fueler Routine Hospital Course (1) DKA (diabetic ketoacidosis): Patient is a 50 yr old female presents with diabetic ketoacidosis. Diabetic ketoacidosis. Metabolic Acidosis secondary to above Poorly Controlled DM HbA1C:14.7 Refused Insulin therapy in the past as per records/Patient No infections have been identified Blood Cx:No growth to date On Jardiance and Metformin at home Non compliance with Blood glucose checks Ordered work up: Islet Cell Ab, Insulin Autoantibody, Anti ALEJANDRO-65--pending Appreciate Aircraft Fueler Help Case Monitor consulted-will have insulin on discharge and will not take any oral Metformin and/or Jardiance. Continue PPI Has been getting subcu insulin Plan will be to continue subcu insulin and start Jardiance as an outpatient and stop Metformin on discharge She will get PT and OT evaluation this afternoon and if she does good on that she will be discharged this afternoon Tachycardia Has been negative balance of more than 1800mL Likely the cause for tachycardia We will give 2 L of normal saline infusion and monitor vitals Repeat PRP tomorrow-no electrolyte abnormality Tachycardia resolved (2) Metabolic acidosis: As above Electrolyte imbalance Hypomagnesemia Hypophosphatemia Hypokalemia Replace electrolytes as needed Elevated D-dimer Likely due to RA Given persistent tachycardia, will obtain CTA to rule out PE D-dimer has been decreased to 500 and doubt any pulmonary embolism Tachycardia seems to be secondary to dehydration GERD Continue PPI Abnormal Thyroid function test Euthyroid Sick Syndrome Will repeat Thyroid function tomorrow Free T3 and T4 levels are normal Doubt any hypothyroidism Low TSH secondary to acute infection Advised to have a repeat test as an outpatient in about 2 to 3 weeks DVT Px Heparin SQ (3) Rheumatoid arthritis: Rheumatoid arthritis. Hydroxychloroquine held for now Continue Prednisone 4 mg daily Left wrist nodule is tender without any acute rheumatoid arthritis We will restart hydroxychloroquine (4) Asthma: Remains stable (5) Low body mass index (BMI): Has been losing weight for a while likely secondary to uncontrolled diabetes as an outpatient Severe Protein calorie malnutrition BMI:13.3 Dietitian consulted-appreciate input and recommendation Likely discharge this afternoon following PT and OT evaluation Total Time Total Time Spent Total Time Spent (In Minutes): 45 minutes Discharge Plan Discharge Items Patient Disposition: Home - Self-Care Reason For Visit: SOB Discharge Diagnosis: Diabetic ketoacidosis, hemoglobin A1c 14.7, controlled rheumatoid arthritis, protein calorie malnutrition, low TSH with normal T3 and T4. Condition on Discharge: Good Activity: Resume your previous activity Non-emergency contact: Primary Care Provider Call non-emergency contact if: you have any medication questions and your symptoms worsen Follow-up/Referrals: Laurie Arreaga DO [Primary Care Provider] - (Date & Time 02/20/2021 1:40 PM Provider Laurie Arreaga DO Department Family [facility] ) Diet: Carb Count or DM1 Addtl Attending Provider Instructions: Please take your insulin as advised Watch for hypoglycemic symptoms and take actions accordingly Keep appointments with your primary care physician and diabetic clinic Keep a record of your blood sugar and show it to your primary care physician and to the diabetic clinic for any adjustment of insulin Do not take any more Metformin and/or Jardiance 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 Discontinue metformin and Jardiance until diagnosis of T1 vs RIK vs T2 can be established. There is an increased risk of DKA in T1DM with SGLT-2 inhibitors. Recommend Lantus 15 units nightly. Recommend continued follow-up with [facility]TM clinic at [facility]. Recommend carbohydrate ratio of 1 unit per 5 grams of carbohydrates consumed. Recommend correction factor of 1 unit per 25 mg/dL over 150 mg/dL. Please follow-up closely with [facility] as these are recommendations based upon current hospitalization (3 days). Pending Studies at Discharge: No Stand-Alone Forms: My [facility], Smoking Cessation Medications and DC Order Prescriptions: New insulin aspart U-100 [Novolog Flexpen U-100 Insulin] 100 unit/mL (3 mL) Insulin Pen 0 unit SC ACHS 30 Days Qty: 9 RF: 0 Lantus Solostar U-100 Insulin 100 unit/mL (3 mL) Insulin Pen 15 unit SC QDD 30 Days Qty: 4.5 RF: 0 guanfacine 1 mg Tablet Extended Release 24 Hr 40 meq PO QAM 30 Days Qty: 30 RF: 0 potassium chloride 20 mEq tablet extended release 20 meq PO DAILY Qty: 30 RF: 0 Continued multivitamin Tablet 1 tab PO DAILY RF: 0 polyethylene glycol 3350 [Miralax] 17 gram Powder In Packet 17 g PO DAILY RF: 0 cetirizine [Zyrtec] 10 mg Tablet 10 mg PO DAILY RF: 0 prednisone 1 mg tablet 4 mg PO DAILY RF: 0 omeprazole 20 mg capsule,delayed release(DR/EC) 20 mg PO BID RF: 0 montelukast 10 mg tablet 10 mg PO DAILY RF: 0 hydroxychloroquine 200 mg tablet 200 mg PO DAILY RF: 0 albuterol sulfate 90 mcg/actuation HFA aerosol inhaler 2 puff INHALATION Q6 PRN (Reason: sob, wheeze) RF: 0 cholecalciferol (vitamin D3) [Vitamin D3] 50 mcg (2,000 unit) Tablet 50 mcg PO DAILY RF: 0 Discontinued metformin 850 mg tablet 850 mg PO TID RF: 0 Jardiance 25 mg tablet 25 mg PO DAILY RF: 0 Discharge Orders: Discharge Order (Routine); Ordered 02/14/21 Ordered By: Cris Schaefer Admission Data Admit Date/Time: 02/11/21 04:32 Attending Provider: Cris Schaefer Admit Provider: Rogerio Lizama Primary Care Provider: Laurie Arreaga Other Providers: Rogerio Lizama ; Leroy Hilton ; Kun Ruelas Other Interventions: Discharge Summary Assessment (RN) Last Done: 02/14/21 16:08
[2021-03-01 18:51] LABS: Glutamic Acid Decarboxylase 65 >250 IU/mL (<5)
== END 2021-02-14 17:45 | disposition home or self-care (01) | DRG 637 ==
LOC: ED 01:58 → 1E 04:32 → SUATTDRO 04:32 → 1E 05:30 → 2S 02-13 15:46